=== PATIENT | male | born 1960 | race Caucasian/White ===

== ENCOUNTER → 2020-07-07 12:46 | Outpatient (BNV) | payer BC, SELFPAY | PROVIDERS: PCP Internal Medicine; Visit Provider Internal Medicine Medical Oncology | DX: Z86.711 Personal history of pulmonary embolism (principal); Z79.01 Long term (current) use of anticoagulants | CPT/HCPCS: 99213; 99214 ==

== ENCOUNTER 2020-08-04 06:30 | Outpatient (REF) | payer BC, SELFPAY ==
[2020-08-04 07:11] LABS: Basophils Absolute Auto 0.1 X10*3/uL (0.0-0.2); Basophils Percent Auto 0.7 % (0-2); Eosinophils Absolute Auto 0.4 X10*3/uL (0.0-0.4); Eosinophils Percent Auto 4.6 % (0-4); Hematocrit 49.2 % (42-52); Hemoglobin 16.4 g/dl (14.0-18.0); Imm Gran Abs Auto 0.02 X10*3/uL (0.00-0.03); Imm Gran Pct Auto 0.2 % (0.0-0.4); Lymphocytes Absolute Auto 2.4 X10*3/uL (1.2-4.9); Lymphocytes Percent Auto 30.2 % (20-40); Mean Corpuscular HGB Conc 33.3 g/dl (31.0-36.0); Mean Corpuscular Hemoglobin 31.1 pg (27.0-33.0); Mean Corpuscular Volume 93.4 fL (80-98); Mean Platelet Volume 9.3 fL (9.4-12.4); Monocytes Absolute Auto 0.7 X10*3/uL (0.1-1.2); Monocytes Percent Auto 9.2 % (2-11); Neutrophils Absolute Auto 4.5 X10*3/uL (2.0-8.3); Neutrophils Percent Auto 55.1 % (45-73); Platelet Count 238 X10*3/uL (160-400); Red Blood Count 5.27 X10*6/uL (4.60-5.80); Red Cell Distribution Width 12.7 % (11.0-16.0); White Blood Count 8.1 X10*3/uL (4.8-10.8)
[2020-08-04 07:13] LABS: MANUAL DIFF FLAG NO
[2020-08-04 07:34] LABS: Alanine Aminotransferase 27 U/L (0-40); Albumin Level 4.3 g/dL (3.5-5.0); Alkaline Phosphatase 78 U/L (39-117); Anion Gap 14 (12-20); Aspartate Amino Transferase 21 U/L (5-37); Bilirubin Total 0.4 mg/dL (0.0-1.0); Blood Urea Nitrogen 22 mg/dL (9-16); Calcium 9.4 mg/dL (8.4-10.2); Carbon Dioxide 26 mmol/L (22-29); Chloride 105 mmol/L (96-108); Cholesterol 183 mg/dL; Estimated Glomerular Filt Rate > 60; Glucose Fasting 123 mg/dL (60-99); HDL Cholesterol 43 mg/dL; LDL Cholesterol Calculated 114 mg/dl; Potassium 4.3 mmol/l (3.3-5.1); Sodium 141 mmol/L (135-145); Total Protein 7.4 g/dL (6.5-8.0); Triglycerides 133 mg/dL
[2020-08-04 07:54] LABS: PSA,Total (Free>4and<10) 1.11 ng/mL (0.00-4.00); T4 Thyroxine 5.3 ug/dL (4.5-12.0); Thyroid Stimulating Hormone 2.98 uIU/mL (0.32-4.0)
[2020-08-04 08:13] LABS: Folate 9.4 ng/mL (> or = 4.0); Vitamin B12 286 pg/mL (200-900)
== END 2020-08-04 06:31 | disposition home or self-care (01) ==
LOC: HO.LAB 06:30
PROVIDERS: Visit Provider Internal Medicine
DX: Z00.00 Encounter for general adult medical examination without abnormal findings (principal); I26.99 Other pulmonary embolism without acute cor pulmonale; I82.409 Acute embolism and thrombosis of unspecified deep veins of unspecified lower extremity; R76.0 Raised antibody titer; D68.8 Other specified coagulation defects; E78.00 Pure hypercholesterolemia, unspecified; I10 Essential (primary) hypertension; R73.01 Impaired fasting glucose; K22.10 Ulcer of esophagus without bleeding; M70.50 Other bursitis of knee, unspecified knee; Z72.0 Tobacco use
CPT/HCPCS: 36415; 80053; 80061; 82607; 82746; 84153; 84436; 84443; 85025

== ENCOUNTER 2021-02-02 09:42 | Outpatient (REF) | payer BC, SELFPAY ==
--- NOTE | ~2021-02-02 | XR_ITS ---
EXAMINATION: XR CHEST CLINICAL INFORMATION: Shortness of breath COMPARISON: Previous chest x-ray most recent January 2020 TECHNIQUE: 2 views of the chest were obtained. FINDINGS: The cardiac and mediastinal contours are normal. There are bilateral symmetric appearing 1 cm nodular densities at the lung bases probably representing nipple shadows. The lungs are otherwise clear. There is no pleural effusion or pneumothorax. There are degenerative changes of the spine. XR/XR chest 2V IMPRESSION: No evidence for acute disease in the chest.
--- NOTE | 2021-02-02 09:51 | ECG_ITS ---
Test Reason : R06.02 SOB Blood Pressure : / mmHG Vent. Rate : 072 BPM Atrial Rate : 072 BPM P-R Int : 116 ms QRS Dur : 084 ms QT Int : 384 ms P-R-T Axes : 067 046 071 degrees QTc Int : 420 ms Normal sinus rhythm Possible Left atrial enlargement Borderline ECG When compared with ECG of 08-FEB-2020 11:25, No significant change was found Referred By: Ed Yuen Electronically Signed By:Gio Schilling
== END 2021-02-02 09:43 | disposition home or self-care (01) ==
LOC: HO.XRAY 09:42
PROVIDERS: PCP Internal Medicine; Visit Provider Internal Medicine
DX: R06.02 Shortness of breath (principal)
CPT/HCPCS: 71046; 93005

== ENCOUNTER 2021-07-07 11:33 | Outpatient (REF) | payer BC, SELFPAY | END 2021-07-07 11:34 | disposition home or self-care (01) | LOC: HO.LAB 11:33 | PROVIDERS: Visit Provider Internal Medicine | DX: Z13.89 Encounter for screening for other disorder (principal) ==

== ENCOUNTER 2021-07-27 06:39 | Outpatient (REF) | payer BC, SELFPAY ==
[2021-07-27 06:51] LABS: MANUAL DIFF FLAG NO
[2021-07-27 07:23] LABS: Basophils Absolute Auto 0.1 X10*3/uL (0.0-0.2); Basophils Percent Auto 0.7 % (0-2); Eosinophils Absolute Auto 0.4 X10*3/uL (0.0-0.4); Eosinophils Percent Auto 4.9 % (0-4); Hematocrit 47.5 % (42.0-52.0); Hemoglobin 15.6 g/dl (14.0-18.0); Imm Gran Abs Auto 0.03 X10*3/uL (0.00-0.03); Imm Gran Pct Auto 0.3 % (0.0-0.4); Lymphocytes Absolute Auto 2.9 X10*3/uL (1.2-4.9); Lymphocytes Percent Auto 31.7 % (20-40); Mean Corpuscular HGB Conc 32.8 g/dl (31.0-36.0); Mean Corpuscular Hemoglobin 30.6 pg (27.0-33.0); Mean Corpuscular Volume 93.1 fL (80.0-98.0); Mean Platelet Volume 9.3 fL (9.4-12.4); Monocytes Absolute Auto 0.8 X10*3/uL (0.1-1.2); Monocytes Percent Auto 8.8 % (2-11); Neutrophils Absolute Auto 4.8 x10*3/uL (2.0-8.3); Neutrophils Percent Auto 53.6 % (45-73); Platelet Count 262 X10*3/uL (160-400); Red Cell Distribution Width 12.9 % (11.0-16.0)
[2021-07-27 07:33] LABS: Estimated Average Glucose 123 mg/dL; Hemoglobin A1c % 5.9 %
[2021-07-27 08:04] LABS: Alanine Aminotransferase 29 U/L (0-40); Albumin Level 4.4 g/dL (3.5-5.0); Alkaline Phosphatase 80 U/L (39-117); Anion Gap 13 (12-20); Aspartate Amino Transferase 19 U/L (5-37); Bilirubin Total 0.6 mg/dL (0.0-1.0); Blood Urea Nitrogen 33 mg/dL (9-16); Calcium 9.9 mg/dL (8.4-10.2); Carbon Dioxide 28 mmol/L (22-29); Chloride 103 mmol/L (96-108); Cholesterol 210 mg/dL; Estimated Glomerular Filt Rate > 60; Glucose Random 121 mg/dL (60-115); HDL Cholesterol 41 mg/dL; LDL Cholesterol Calculated 108 mg/dl; Potassium 4.5 mmol/L (3.3-5.1); Sodium 139 mmol/L (135-145); Total Protein 7.8 g/dL (6.5-8.0); Triglycerides 306 mg/dL
[2021-07-27 08:14] LABS: Free T4 (Free Thyroxine) 0.89 ng/dL (0.71-1.85); Prostate Specific Antigen Scr 1.43 ng/mL (<0.05-4.0); Thyroid Stimulating Hormone 3.96 uIU/mL (0.32-4.0)
[2021-07-27 09:11] LABS: Folate 11.1 ng/mL (> or = 4.0); Vitamin B12 312 pg/mL (200-900)
== END 2021-07-27 06:40 | disposition home or self-care (01) ==
LOC: HO.LAB 06:39
PROVIDERS: PCP Internal Medicine; Visit Provider Internal Medicine
DX: R73.02 Impaired glucose tolerance (oral) (principal); E78.00 Pure hypercholesterolemia, unspecified; I10 Essential (primary) hypertension; Z12.5 Encounter for screening for malignant neoplasm of prostate
CPT/HCPCS: 36415; 80053; 80061; 82607; 82746; 83036; 84153; 84439; 84443; 85025

== ENCOUNTER 2022-02-01 10:29 | Outpatient (REF) | payer BC, SELFPAY ==
[2022-02-01 10:45] LABS: MANUAL DIFF FLAG NO
[2022-02-01 10:55] LABS: Basophils Absolute Auto 0.1 X10*3/uL (0.0-0.2); Basophils Percent Auto 0.6 % (0-2); Eosinophils Absolute Auto 0.3 X10*3/uL (0.0-0.4); Hemoglobin 16.3 g/dl (14.0-18.0); Imm Gran Abs Auto 0.03 X10*3/uL (0.00-0.03); Imm Gran Pct Auto 0.4 % (0.0-0.4); Lymphocytes Absolute Auto 2.4 X10*3/uL (1.2-4.9); Lymphocytes Percent Auto 30.3 % (20-40); Mean Corpuscular Volume 91.3 fL (80.0-98.0); Mean Platelet Volume 8.9 fL (9.4-12.4); Monocytes Absolute Auto 0.7 X10*3/uL (0.1-1.2); Monocytes Percent Auto 8.5 % (2-11); Neutrophils Absolute Auto 4.5 x10*3/uL (2.0-8.3); Neutrophils Percent Auto 56.2 % (45-73); Platelet Count 215 X10*3/uL (160-400); Red Blood Count 5.26 X10*6/uL (4.60-5.80)
[2022-02-01 11:04] LABS: Estimated Average Glucose 120 mg/dL; Hemoglobin A1c % 5.8 %
[2022-02-01 11:37] LABS: Alanine Aminotransferase 27 U/L (0-40); Albumin Level 4.7 g/dL (3.5-5.0); Alkaline Phosphatase 75 U/L (39-117); Anion Gap 12 (12-20); Aspartate Amino Transferase 25 U/L (5-37); Bilirubin Total 0.2 mg/dL (0.0-1.0); Blood Urea Nitrogen 22 mg/dL (9-16); Calcium 9.2 mg/dL (8.4-10.2); Carbon Dioxide 23 mmol/L (22-29); Chloride 105 mmol/L (96-108); Cholesterol 208 mg/dL; Estimated Glomerular Filt Rate > 60; Glucose Random 110 mg/dL (60-115); HDL Cholesterol 35 mg/dL; LDL Cholesterol Calculated 110 mg/dl; Potassium 4.1 mmol/L (3.3-5.1); Sodium 136 mmol/L (135-145); Total Protein 8.1 g/dL (6.5-8.0); Triglycerides 318 mg/dL
[2022-02-01 12:01] LABS: Thyroid Stimulating Hormone 1.49 uIU/mL (0.32-4.0)
== END 2022-02-01 10:30 | disposition home or self-care (01) ==
LOC: HO.LAB 10:29
PROVIDERS: PCP Internal Medicine; Visit Provider Internal Medicine
DX: R73.02 Impaired glucose tolerance (oral) (principal); I10 Essential (primary) hypertension; E78.00 Pure hypercholesterolemia, unspecified
CPT/HCPCS: 36415; 80053; 80061; 83036; 84443; 85025

== ENCOUNTER 2022-03-12 13:41 | Outpatient (REF) | payer BC, SELFPAY ==
--- NOTE | ~2022-03-12 | CT_ITS ---
EXAMINATION: CT CHEST SCREENING CLINICAL INFORMATION: Nicotine dependence. COMPARISON: CTA chest 10/30/2018 TECHNIQUE: Multidetector volumetric CT imaging of the chest is performed without contrast using low dose technique. Additional 2D coronal and sagittal reformatted images and axial 3D maximum intensity projection (MIP) images are generated on the CT workstation. This CT examination was performed using dose optimization techniques as appropriate, variously including the following: *Automated exposure control *Adjustment of mA and/or kV according to patient size (this includes techniques or standardized protocols for targeted exams where dose is matched to indication/reason for exam; i.e. extremities or head) *Use of iterative reconstruction technique DLP: 51 mGy-cm FINDINGS: LUNGS: There is bilateral apical parenchymal scarring and apical pleural thickening. There is a 2 mm calcified subpleural nodule left upper lobe 135/6, 2 mm noncalcified nodule right upper lobe, axial image 141/6 and mild focal thickening left major fissure axial image 253/6. There is a 3 mm nodule right lower lobe axial image 306/6, and 6 mm nodule along the left major fissure axial image 312/16. These nodules are stable. No new nodules. MEDIASTINUM: The thyroid lobes are stable and symmetrical. The central trachea and the bronchi are widely patent. The heart size and the great vessels are normal caliber. There is no pericardial effusion. The central trachea and the bronchi are widely patent. No abnormal-sized mediastinal or hilar lymph nodes seen. PLEURA: There is bilateral apical pleural thickening. No effusion or calcified plaque seen. AXILLA: Small shotty lymph nodes seen in the mediastinum. The chest wall appears unremarkable. UPPER ABDOMEN: Visualized liver, spleen, pancreas and bilateral adrenal glands unremarkable. OSSEOUS STRUCTURES: No lytic or sclerotic process seen. There is moderate spondylosis mid dorsal spine CT/CT lung screening IMPRESSION: Calcified and noncalcified nodules. Intrafissural nodules are likely lymph nodes and they are stable compared to previous exam 10/30/2018 ASSESSMENT: Lung-RADS category 2: Benign RECOMMENDATION: Low-dose annual CT chest.
== END 2022-03-12 13:42 | disposition home or self-care (01) ==
LOC: HO.CT 13:41
PROVIDERS: PCP Internal Medicine; Visit Provider Physician Assistant Medical
DX: Z12.2 Encounter for screening for malignant neoplasm of respiratory organs (principal); F17.210 Nicotine dependence, cigarettes, uncomplicated
CPT/HCPCS: 71271; G0296

== ENCOUNTER 2022-11-09 11:38 | Outpatient (REF) | payer BC, SELFPAY ==
--- NOTE | ~2022-11-09 | XR_ITS ---
EXAMINATION: XR HAND/WRIST, BILATERAL CLINICAL INFORMATION: Bilateral wrist pain COMPARISON: None. TECHNIQUE: 4 views of each hand/wrist. FINDINGS: Right hand/wrist: Moderate osteoarthritis with narrowing of the triscaphoid articulation. Moderate degenerative changes also at the 3rd PIP joint and the 2nd/3rd DIP joints. There are mild degenerative changes elsewhere throughout the MCP and IP joints. No active erosion or acute osseous abnormality. Left hand/wrist: Severe osteoarthritis of the triscaphoid articulation. Moderate osteoarthritis of the 2nd and 3rd DIP joints. Mild degenerative changes throughout the remainder of the MCP and IP joints. No active erosion or acute osseous abnormality. XR/XR hand wrist LT IMPRESSION: Degenerative changes of both hands and wrists as described, most severe at the triscaphoid articulation, 2nd and 3rd DIP joints. No evidence of an active inflammatory arthropathy.
--- NOTE | ~2022-11-09 | XR_ITS ---
EXAMINATION: XR HAND/WRIST, BILATERAL CLINICAL INFORMATION: Bilateral wrist pain COMPARISON: None. TECHNIQUE: 4 views of each hand/wrist. FINDINGS: Right hand/wrist: Moderate osteoarthritis with narrowing of the triscaphoid articulation. Moderate degenerative changes also at the 3rd PIP joint and the 2nd/3rd DIP joints. There are mild degenerative changes elsewhere throughout the MCP and IP joints. No active erosion or acute osseous abnormality. Left hand/wrist: Severe osteoarthritis of the triscaphoid articulation. Moderate osteoarthritis of the 2nd and 3rd DIP joints. Mild degenerative changes throughout the remainder of the MCP and IP joints. No active erosion or acute osseous abnormality. XR/XR hand wrist RT IMPRESSION: Degenerative changes of both hands and wrists as described, most severe at the triscaphoid articulation, 2nd and 3rd DIP joints. No evidence of an active inflammatory arthropathy.
== END 2022-11-09 11:39 | disposition home or self-care (01) ==
LOC: HO.XRAY 11:38
PROVIDERS: PCP Internal Medicine; Visit Provider Internal Medicine
DX: M25.532 Pain in left wrist (principal); M25.531 Pain in right wrist; M79.641 Pain in right hand; M79.642 Pain in left hand
CPT/HCPCS: 73110; 73130

== ENCOUNTER → 2022-11-25 08:20 | Outpatient (REF) | payer BC, SELFPAY ==
--- NOTE | 2022-11-25 08:22 | CA_ITS ---
Acquisition Time: 2022-11-25 08:33:13 Total Exercise Time: 00:08:59 Test Indications: CP Medications: SEE H Protocol: STAN Max HR: 162 BPM 102% of Pred: 158 BPM Max BP: 164/078 mmHG Max Work Load: 10.1 METS Exercise stress test 8 min 59 sec of Stan protocol achieving 101% MPHR, with moderate SOB, no chest discomfort, isolated PVC, with normotensive response to exercise, with EKG chnages meeting criteria for ischemia. Up to 1mm ST depression inferiorly and V4-V5 which corrects quickly in recovery then with slight downsloping STs in those leads in later recovery. Test reviewed with Dr Ron. Message sent to PCP with report and recommendation for stress echocardiogram for further evaluation. Referred By: Ed Yuen Overread By: CHAIM LOUISE
== END ==
LOC: HO.CARD 08:20
PROVIDERS: PCP Internal Medicine; Visit Provider Internal Medicine
DX: R06.02 Shortness of breath (principal)
CPT/HCPCS: 93017

== ENCOUNTER 2023-02-07 06:33 | Outpatient (REF) | payer BC, SELFPAY ==
[2023-02-07 06:47] LABS: MANUAL DIFF FLAG NO
[2023-02-07 07:17] LABS: Basophils Absolute Auto 0.1 X10*3/uL (0.0-0.2); Eosinophils Absolute Auto 0.3 X10*3/uL (0.0-0.4); Eosinophils Percent Auto 4.2 % (0-4); Hematocrit 48.2 % (42.0-52.0); Hemoglobin 16.5 g/dl (14.0-18.0); Imm Gran Abs Auto 0.03 X10*3/uL (0.00-0.03); Imm Gran Pct Auto 0.4 % (0.0-0.4); Lymphocytes Absolute Auto 2.8 X10*3/uL (1.2-4.9); Lymphocytes Percent Auto 34.2 % (20-40); Mean Corpuscular HGB Conc 34.2 g/dl (31.0-36.0); Mean Corpuscular Hemoglobin 31.7 pg (27.0-33.0); Mean Corpuscular Volume 92.7 fL (80.0-98.0); Mean Platelet Volume 9.1 fL (9.4-12.4); Monocytes Absolute Auto 0.8 X10*3/uL (0.1-1.2); Neutrophils Absolute Auto 4.1 x10*3/uL (2.0-8.3); Neutrophils Percent Auto 50.2 % (45-73); Platelet Count 216 X10*3/uL (160-400); Red Cell Distribution Width 12.7 % (11.0-16.0); White Blood Count 8.1 X10*3/uL (4.8-10.8)
[2023-02-07 07:25] LABS: Estimated Average Glucose 114 mg/dL; Hemoglobin A1c % 5.6 %
[2023-02-07 07:51] LABS: Alanine Aminotransferase 23 U/L (0-40); Albumin Level 4.3 g/dL (3.5-5.0); Alkaline Phosphatase 73 U/L (39-117); Anion Gap 13 (12-20); Aspartate Amino Transferase 23 U/L (5-37); Bilirubin Total 0.3 mg/dL (0.0-1.0); Blood Urea Nitrogen 13 mg/dL (9-16); Calcium 9.5 mg/dL (8.4-10.2); Carbon Dioxide 26 mmol/L (22-29); Chloride 103 mmol/L (96-108); Cholesterol 186 mg/dL; Estimated Glomerular Filt Rate > 60; Glucose Random 98 mg/dL (60-115); HDL Cholesterol 38 mg/dL; LDL Cholesterol Calculated 102 mg/dl; Potassium 4.3 mmol/L (3.3-5.1); Sodium 138 mmol/L (135-145); Total Protein 7.7 g/dL (6.5-8.0); Triglycerides 231 mg/dL
[2023-02-07 08:05] LABS: Free T4 (Free Thyroxine) 0.79 ng/dL (0.71-1.85); Thyroid Stimulating Hormone 3.65 uIU/mL (0.32-4.0); Vitamin D 25-OH Total 86.3 ng/mL (>30)
[2023-02-07 08:20] LABS: Prostate Specific Antigen Scr 1.27 ng/mL (<0.05-4.0); Vitamin B12 340 pg/mL (200-900)
== END 2023-02-07 06:34 | disposition home or self-care (01) ==
LOC: HO.LAB 06:33
PROVIDERS: PCP Internal Medicine; Visit Provider Internal Medicine
DX: Z12.5 Encounter for screening for malignant neoplasm of prostate (principal); E78.00 Pure hypercholesterolemia, unspecified; R73.02 Impaired glucose tolerance (oral); E55.9 Vitamin D deficiency, unspecified
CPT/HCPCS: 36415; 80053; 80061; 82306; 82607; 82746; 83036; 84153; 84439; 84443; 85025

== ENCOUNTER 2023-02-10 08:56 | Outpatient (AMB) | payer BC, SELFPAY ==
--- NOTE | 2023-02-10 08:59 | A.OFFPC_ITS ---
Vital Signs 02/10/23 09:01 Height 5 ft 9 in Weight 176 lb BMI 26.0 BP 158/68 H Blood Pressure Location Lt brachial Position Sitting Pulse 80 Pulse Source Pulse Oximeter Pulse Oximetry (%) 98 Oxygen Delivery Method Room Air Intake Visit Reasons: Annual Exam Allergies No Known Allergies [No Known Allergies*] Allergy (Verified 02/10/23 09:01) Medication List - Last Reconciled 02/10/23 by Ed Yuen MD albuterol sulfate 90 mcg/actuation (ProAir HFA) 2 puffs inhalation Q6H PRN lisinopril 10 mg PO DAILY 90 days omeprazole 20 mg PO DAILY rivaroxaban (Xarelto) 10 mg PO DAILY simvastatin 10 mg PO BEDTIME timolol 0.25% 1 drp ophthalmic (eye) DAILY [Vitamin D (with calcium) 1 tab PO DAILY] Tobacco use date assessed: 11/09/22 Dental Screening Dental Screen Date: 02/10/23 Did you have a dental visit in the last 12 months?: No Did you have a dental problem in the last 6 months where you did not have access to dental care?: No Was dental information given to patient?: No HPI Annual Exam HPI Details 62-year-old male smoker(CT scan February 2022) with lupus anticoagulant positive on anticoagulation history of impaired glucose tolerance COPD hypercholesterolemia hypertension coming in for physical exam. Colonoscopy is up-to-date blood work was requested patient was last seen in October 2022. Patient had a problem with breathing and stress test was requested with this stress echocardiogram requested. Patient also follows up with hematology oncology due to right leg DVT and pulmonary embolism patient is on anticoagulation daily maintenance dose of 10 mg once a day. Patient also had some x-rays of the hand showing degenerative changes most severe try scaphoid articulation 2nd and 3rd D IP, near passing out 1.5 months ago ? syncope. sob 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 Tubular adenoma of colon (~2017) Vitamin D deficiency Surgical History History of angioplasty of vein History of colonoscopy History of esophagogastroduodenoscopy (EGD) S/P insertion of IVC (inferior vena caval) filter Family History Father Automobile accident Mother Breast cancer Sister Cancer Social History (Updated 02/10/23 @ 09:18 by Ed Yuen MD) Housing: Apartment Alcohol intake: current Patient Tobacco Use Status: Current everyday Tobacco user Tobacco use type: Cigarette Years Smoked: (onset 18yo, 1/2-3/4 ppd x 43yrs, 25+PYH) e-Cigarette/Vaping Use: Never Used Second Hand Smoke Exposure: Yes service: No Current occupational status: employed Cognitive needs: No Hearing needs: No Vision needs: Yes Questionnaire PHQ-9 Over the last 2 weeks, how often have you been bothered by any of the following problems? 1. Little interest or pleasure in doing things: not at all 2. Feeling down, depressed, or hopeless: not at all 3. Trouble falling or staying asleep, or sleeping too much: not at all 4. Feeling tired or having little energy: not at all 5. Poor appetite or overeating: not at all 6. Feeling bad about yourself - or that you are a failure or have let yourself or your family down: not at all 7. Trouble concentrating on things, such as reading the newspaper or watching television: not at all 8. Moving or speaking so slowly that other people could have noticed. Or the o pposite - being so fidgety or restless that you have been moving around a lot more than usual: not at all 9. Thoughts that you would be better off or of hurting yourself in some way: not at all Total score: 0 Depression Screening Interpretation: Negative Source: Developed by Drs. Sadiq Simmons, Jeanette Park, Shawn Webb and colleagues, with an educational julissa from [employer]. Thrive Questionnaire Date Thrive assessed: 11/09/22 AUDIT C Alcohol Use Questionnaire (AUDIT-C) 1. How often do you have a drink containing alcohol?: 2-3 times a week 2. How many drinks containing alcohol do you have on a typical day when you are drinking?: 3 or 4 3. How often do you have six or more drinks on one occasion?: Less than monthly Total Score: 5 JARVIS-7 AMB Questionnaire JARVIS-7 Date JARVIS - 7 assessed: 11/09/22 Source: Developed by Drs. Sadiq Simmons, Jeanette Park, Shawn Webb and colleagues, with an educational julissa from [employer]. Review of Systems Const Denies poor appetite and Denies weakness Eyes Denies no additional complaints ENT Reports Normal hearing present, Denies dizziness, Denies nasal congestion, Denies tinnitus and Denies sore throat Card Denies chest pain, Denies syncope, Denies rapid heart rate and Denies dyspnea Resp Denies cough and Denies dyspnea GI Denies change in stool character, Reports constipation, Denies diarrhea, Denies nausea and Denies vomiting Denies dysuria and Denies urinary frequency Neuro Reports Normal hearing present, Denies confusion, Denies dizziness, Denies syncope and Denies weakness Psych Denies confusion Physical exam (Primary Care) Vital Signs: Last Vital Signs Pulse 80 02/10/23 09:01 BP 158/68 H 02/10/23 09:01 Pulse Ox 98 02/10/23 09:01 Oxygen Delivery Method Room Air 02/10/23 09:01 Care Plan Goal for BP management: guaiac negative, prostate N, BMI result Body Mass Index 26.0 Tobacco/Smoking Status: Tobacco use Status Tobacco use date assessed 11/09/22 02/10/23 09:05 Patient Tobacco Use Status Current everyday Tobacco 02/10/23 09:05 Tobacco use type Cigarette 02/10/23 09:05 e-Cigarette/Vaping Use Never Used 02/10/23 09:05 PHQ-9: PHQ-9 Score PHQ-9: Total score 0 02/10/23 09:05 Depression Screening Interpretation: Negative Thrive Assessment: Date of Thrive Assessment Date Thrive assessed 11/09/22 02/10/23 09:05 Const General: No confusion Orientation/consciousness: No confusion HENMT Head: Yes normocephalic Ears: external ears normal and TM's normal bilaterally Face and sinus: Yes normal facial exam Mouth: moist mucous membranes Throat: Yes tonsils normal Eyes Conjunctivae: conjunctivae normal Pupils: Equal, round and reactive pupils present and Pupil accommodation reflex normal Direct Ophthalmoscopy: normal light reflex Neck Neck: No lymphadenopathy Thyroid: Thyroid normal Chest Chest palpation & inspection: normal inspection of the chest Resp Effort & Inspection: normal respiratory effort and no audible wheezes Auscultation: clear to auscultation bilaterally, no crackles, no wheezes and lung sounds not diminished Cardio Rate: regular rate Rhythm: regular rhythm Peripheral pulses: radial pulses present and dorsalis pedis present GI Palpation (GI): no masses Auscultation: normal bowel sounds and normoactive bowel sounds Skin General skin exam: no rashes or lesions noted Rashes: no rashes Neuro General: No confusion Cranial nerves: Yes Equal, round and reactive pupils present and Yes Normal hearing present Cognition (Neuro): normal cognition Gait exam (Neuro): Normal gait present Motor exam (neuro): 5/5 motor strength present throughout Deep tendon reflexes (DTR's): Right brachioradialis reflex intensity grade: 2+, Left brachioradialis reflex intensity grade: 2+, Right patellar reflex intensity grade: 2+ and Left patellar reflex intensity grade: 2+ Extrem General: No edema Assessment and Plan Assessment & Plan (1) Annual physical exam: Code(s): Z00.00 - Encounter for general adult medical examination without abnormal findings (2) Impaired glucose tolerance: Code(s): R73.02 - Impaired glucose tolerance (oral) Plan: Decrease the amount of carbohydrate intake, pasta, bread, rice and potatoes are all sugar and that is aside from all the sweet stuff, remember that fruits are good but they are Sweet also. (3) Hypertension: Code(s): I10 - Essential (primary) hypertension Qualifiers: Hypertension type: essential hypertension Qualified Code(s): I10 - Essential (primary) hypertension Plan: Continue with blood pressure medication. Decrease salt intake and exercise patient is presently taking lisinopril 10 mg once a day. BP at home has been good . advised monitor BP at home (4) Hypercholesterolemia: Code(s): E78.00 - Pure hypercholesterolemia, unspecified Plan: Avoid fried foods, chicken skin, eggs, butter margarine, pastries and meat. Be it pork or beef they have a lot of cholesterol LDL goal of less than 130 and triglyceride of less than 150 patient is on simvastatin 10 mg at bedtime (5) Lupus anticoagulant positive: Code(s): R76.0 - Raised antibody titer Plan: Continue with anticoagulation on Xarelto 10 mg maintenance patient is being followed up by hematology oncology (6) COPD (chronic obstructive pulmonary disease): Comment: 2010 PFT Code(s): J44.9 - Chronic obstructive pulmonary disease, unspecified Plan: Continue with the inhalers as needed, stop smoking! (7) Personal history of nicotine dependence: Comment: (current smoker - onset 18yo, 1/2-3/4 ppd x 43yrs, 25+PYH) CT scan done February 2022 Code(s): Z87.891 - Personal history of nicotine dependence Plan: CT scan up-to-date February 2022 (8) Osteoarthritis of hands, bilateral: Code(s): M19.041 - Primary osteoarthritis, right hand; M19.042 - Primary osteoarthritis, left hand Plan: Keep active patient was prescribed Voltaren gel (9) SOB (shortness of breath) on exertion: Code(s): R06.02 - Shortness of breath Plan: Patient has been advised to get a stress echocardiogram which is pending Medications: New diclofenac sodium 1% (Voltaren Arthritis Pain) apply to single knee, ankle, foot; for foot includes sole/toes/top of foot, hands 4 grams topical QID 100 grams 3RF M19.041 - Primary osteoarthritis, right hand, M19.042 - Primary osteoarthritis, left hand Discontinued rivaroxaban 10 mg PO DAILY 90 tabs 3RF Coding Level of Care Code Est Pt Prev Care 40-64y(24676) Diagnoses Annual physical exam Z00.00 Impaired glucose tolerance R73.02 Hypertension I10 Hypertension type: essential hypertension Hypercholesterolemia E78.00 Lupus anticoagulant positive R76.0 COPD (chronic obstructive pulmonary disease) J44.9 Personal history of nicotine dependence Z87.891 Osteoarthritis of hands, bilateral M19.041; M19.042 SOB (shortness of breath) on exertion R06.02
[2023-02-10 09:01] VITALS: BP 158/68; PULSE 80; O2SAT 98; BMI 26.0
== END 2023-02-10 09:40 | disposition home or self-care (01) ==
PROVIDERS: PCP Internal Medicine; Visit Provider Internal Medicine
DX: Z00.00 Encounter for general adult medical examination without abnormal findings (principal); I10 Essential (primary) hypertension; J44.9 Chronic obstructive pulmonary disease, unspecified; Z87.891 Personal history of nicotine dependence; R73.02 Impaired glucose tolerance (oral); E78.00 Pure hypercholesterolemia, unspecified; R76.0 Raised antibody titer; M19.041 Primary osteoarthritis, right hand; M19.042 Primary osteoarthritis, left hand; R06.02 Shortness of breath
CPT/HCPCS: 99396

== ENCOUNTER 2023-03-27 13:16 | Emergency (ER) | payer BC, SELFPAY ==
[2023-03-27 13:53] VITALS: BP 144/89; PULSE 93; RESP 18; TEMP 36.4; O2SAT 98; BMI 25.5
--- NOTE | 2023-03-27 13:53 | ED.DENTAL ---
HPI - Dental/Oral General Stated complaint: swollen in gums Time Seen by Provider: 03/27/23 13:53 Source: patient Mode of arrival: ambulatory Limitations: no limitations History of Present Illness HPI Narrative: 62 yo male with past medical history of HTN, HLD, COPD, h/o DVTs on xarelto here with right upper dental pain since . No fevers, chills, difficulty breathing or swallowing. Does not have a dentist +smoking history Related Data Home Medications Medication Instructions Recorded Confirmed Vitamin D (with calcium) 1 tab PO DAILY 07/07/20 02/10/23 omeprazole 20 mg capsule,delayed 20 mg PO DAILY 07/07/20 02/10/23 release timolol 0.25 % eye drops 1 drp ophthalmic (eye) DAILY 07/07/20 02/10/23 Previous Rx's Medication Instructions Recorded albuterol sulfate 90 mcg/actuation 2 puff inhalation Q6H PRN 02/03/22 aerosol inhaler (ProAir HFA) shortness of breath or wheezing #8.5 grams lisinopril 10 mg tablet 10 mg PO DAILY 90 days #90 tabs 04/29/22 rivaroxaban 10 mg tablet (Xarelto) 10 mg PO DAILY #90 tabs 01/17/23 diclofenac sodium 1 % topical gel 4 g topical QID #100 grams 02/21/23 (Voltaren Arthritis Pain) simvastatin 10 mg tablet 10 mg PO BEDTIME #90 tabs 03/21/23 Allergies Allergy/AdvReac Type Severity Reaction Status Date / Time No Known Allergies Allergy Verified 02/10/23 09:01 [No Known Allergies*] Review of Systems Review of Systems: Yes all other systems are reviewed and are negative Constitutional: Constitutional: Reports no additional constitutional complaints, Denies body ache(s), Denies chills, Denies fever(s), Denies headache(s) and Denies weakness Eyes: Eyes: Reports no additional eye complaints and Denies change in vision ENT: Reports system reviewed and no additional complaints, except as documented, Reports dental pain, Denies dizziness, Denies headache(s), Denies nasal congestion, Denies nasal discharge and Denies neck pain Cardiovascular: Cardiovascular: Reports no additional cardiovascular complaints, Denies chest pain, Denies leg edema and Denies dyspnea Respiratory: Respiratory: Reports no additional respiratory complaints, Denies cough and Denies dyspnea Gastrointestinal: Gastrointestinal: Reports no additional gastrointestinal complaints, Denies abdominal pain, Denies diarrhea, Denies nausea and Denies vomiting Genitourinary: Genitourinary: Denies urinary incontinence Musculoskeletal: Musculoskeletal: Reports no additional musculoskeletal complaints, Denies back pain, Denies arthralgias, Denies joint swelling, Denies neck pain, Denies numbness and Denies tingling Integumentary/Breasts: Skin/Breast: Reports system reviewed and no additional complaints, except as docu and Denies rash Neurologic: Reports system reviewed and no additional complaints, except as documented, Denies dizziness, Denies headache(s), Denies numbness, Denies tingling and Denies weakness PMFSH Past Medical History Attestation statement: The following information was validated with the patient. Source: old records reviewed and nursing notes reviewed Medical History Annual physical exam Erosive esophagitis History of deep vein thrombosis (DVT) of lower extremity (~07/2017) History of pulmonary embolism (~07/2017) Hypercholesterolemia Hypertension Lupus anticoagulant positive Peripheral vascular disease Personal history of nicotine dependence Prothrombin [id number] mutation Tubular adenoma of colon (~2017) Vitamin D deficiency Surgical History History of angioplasty of vein History of colonoscopy History of esophagogastroduodenoscopy (EGD) S/P insertion of IVC (inferior vena caval) filter Family History Family History Father Automobile accident Mother Breast cancer Sister Cancer Social History Social History Housing: Apartment Alcohol intake: current Patient Tobacco Use Status: Current everyday Tobacco user Tobacco use type: Cigarette Years Smoked: (onset 18yo, 1/2-3/4 ppd x 43yrs, 25+PYH) e-Cigarette/Vaping Use: Never Used Second Hand Smoke Exposure: Yes service: No Current occupational status: employed Cognitive needs: No Hearing needs: No Vision needs: Yes Medical Decision Making Medical Decision Making MDM Narrative: 62 yo male with past medical history of HTN, HLD, COPD, h/o DVTs on xarelto here with right upper dental pain since . No fevers, chills, difficulty breathing or swallowing. Does not have a dentist +smoking history Discharge Plan Discharge Prescriptions: No Action lisinopril 10 mg tablet 10 mg PO DAILY 90 Days Qty: 90 2RF diclofenac sodium [Voltaren Arthritis Pain] 1 % gel 4 g topical QID Qty: 100 3RF Rx Instructions: apply to single knee, ankle, foot; for foot includes sole/toes/top of foot, hands simvastatin 10 mg tablet 10 mg PO BEDTIME Qty: 90 2RF timolol 0.25 % Drops 1 drp ophthalmic (eye) DAILY omeprazole 20 mg Capsule,Delayed Release(Dr/Ec) 20 mg PO DAILY Vitamin D (with calcium) 1 tab PO DAILY Xarelto 10 mg Tablet 10 mg PO DAILY Qty: 90 3RF albuterol sulfate [ProAir HFA] 90 mcg/actuation HFA aerosol inhaler 2 puff inhalation Q6H PRN (Reason: shortness of breath or wheezing) Qty: 8.5 0RF
--- NOTE | 2023-03-27 13:57 | ED_ITS ---
HPI - Dental/Oral General Chief complaint: Dental/Oral Stated complaint: swollen in gums Time Seen by Provider: 03/27/23 13:53 Source: patient Mode of arrival: ambulatory Limitations: no limitations History of Present Illness HPI Narrative: Patient is a 62-year-old male with history of HTN, hypercholesterolemia, COPD, smoker presenting to the emergency department with right upper gingival pain and swelling for the past several days. Reports that he has a partial which has been unable to wear due to pain. Denies any fevers. Denies any drainage or discharge. States he does not currently have a dentist. Onset (ago): day(s) Duration: constant Severity: severe Relieving factors: nothing Exacerbating factors: chewing Associated symptoms: gum swelling Treatment prior to arrival: none Related Data Home Medications Medication Instructions Recorded Confirmed Vitamin D (with calcium) 1 tab PO DAILY 07/07/20 02/10/23 omeprazole 20 mg capsule,delayed 20 mg PO DAILY 07/07/20 02/10/23 release timolol 0.25 % eye drops 1 drp ophthalmic (eye) DAILY 07/07/20 02/10/23 Previous Rx's Medication Instructions Recorded albuterol sulfate 90 mcg/actuation 2 puff inhalation Q6H PRN 02/03/22 aerosol inhaler (ProAir HFA) shortness of breath or wheezing #8.5 grams lisinopril 10 mg tablet 10 mg PO DAILY 90 days #90 tabs 04/29/22 rivaroxaban 10 mg tablet (Xarelto) 10 mg PO DAILY #90 tabs 01/17/23 diclofenac sodium 1 % topical gel 4 g topical QID #100 grams 02/21/23 (Voltaren Arthritis Pain) simvastatin 10 mg tablet 10 mg PO BEDTIME #90 tabs 03/21/23 amoxicillin 875 mg-potassium 1 tab PO BID #14 tabs 03/27/23 clavulanate 125 mg tablet Allergies Allergy/AdvReac Type Severity Reaction Status Date / Time No Known Allergies Allergy Verified 03/27/23 13:56 [No Known Allergies*] Review of Systems Review of Systems: As per HPI Yes all other systems are reviewed and are negative Constitutional: Constitutional: Reports as per HPI PMF Past Medical History Medical History Annual physical exam Erosive esophagitis History of deep vein thrombosis (DVT) of lower extremity (~07/2017) History of pulmonary embolism (~07/2017) Hypercholesterolemia Hypertension Lupus anticoagulant positive Peripheral vascular disease Personal history of nicotine dependence 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 Tubular adenoma of colon (~2017) Vitamin D deficiency Surgical History History of angioplasty of vein History of colonoscopy History of esophagogastroduodenoscopy (EGD) S/P insertion of IVC (inferior vena caval) filter Family History Family History Father Automobile accident Mother Breast cancer Sister Cancer Social History Social History Housing: Apartment Alcohol intake: current Patient Tobacco Use Status: Current everyday Tobacco user Tobacco use type: Cigarette Years Smoked: (onset 18yo, 1/2-3/4 ppd x 43yrs, 25+PYH) e-Cigarette/Vaping Use: Never Used Second Hand Smoke Exposure: Yes Advance Directives: Yes Advance Directives Information Provided: Yes Advance Directives on File: No service: No Current occupational status: employed Cognitive needs: No Hearing needs: No Vision needs: Yes Physical Exam Vital Signs: Vital Signs: Last Vital Signs Temp 97.6 F 03/27/23 13:53 Pulse 93 03/27/23 13:53 Resp 18 03/27/23 13:53 BP 144/89 H 03/27/23 13:53 Pulse Ox 98 03/27/23 13:53 O2 Del Method Room Air 03/27/23 13:53 BMI result Body Mass Index 25.5 Vital signs have been reviewed and appear to be correct. Blood pressure el evated. Heart rate normal. Respiratory rate normal. Temperature normal. Oxygen saturation normal. Const: General: cooperative, healthy appearing and no acute distress Orientation/consciousness: oriented to person, oriented to place, oriented to time and patient oriented x3 Limitations: no limitations HEENT: Head: Yes normocephalic and Yes atraumatic Ears: external ears normal General nose exam: Normal external nose present Face and sinus: Yes face symmetric Mouth: oropharynx normal and moist mucous membranes Teeth and gingiva: gingiva abnormal edematous (erythema), multiple restorations and poor dentition Teeth image: 1. Erythema and swelling to gingiva in area of teeth # 1&2 which have previously been removed Throat: Yes uvula midline Eyes: Pupils: Equal, round and reactive pupils present Neck: Neck: Yes normal visual inspection and Yes supple Resp: Effort & Inspection: normal respiratory effort and able to speak in complete sentences Auscultation: clear to auscultation bilaterally Cardio: Rate: regular rate Rhythm: regular rhythm Heart sounds: S1 normal heart sound present and S2 normal heart sound present GI: Palpation (GI): Soft to palpation and nontender Auscultation: normoactive bowel sounds : General: Yes no CVA tenderness Back/Spine/Pelvis: Back: no CVA tenderness Skin: General skin exam: elasticity normal and turgor normal Neuro: General: oriented to person, oriented to place, oriented to time, patient oriented x3, moves all extremities, no focal motor deficits and CN's II- XI intact bilaterally Cranial nerves: Yes Equal, round and reactive pupils present Cognition (Neuro): normal cognition Extrem: General: Yes full ROM, Yes no pedal edema and Yes no calf tenderness Psych: Mental Status: mental status grossly normal Affect: normal affect Thought process: Normal thought process present Course Course Course Narrative: This is a rapid medical exam. Defer additional HPI, ROS, PE department pr ovider. 62 yo male with past medical history of HTN, HLD, COPD, h/o DVTs on xarelto here with right upper dental pain since . No fevers, chills, difficulty breathing or swallowing. Does not have a dentist +smoking history +dental abscess seen which may be conducive to I&D VSS Medical Decision Making Medical Decision Making MDM Narrative: Patient is a 62-year-old male with history of HTN, hypercholesterolemia, COPD, smoker presenting to the emergency department with right upper gingival pain and swelling for the past several days. On exam patient is awake, A+Ox3, VS WNL, afebrile, normal neurological exam without focal deficits, erythema mild edema noted to right upper posterior gingiva where teeth 1 & 2 have previously been removed. Given reported symptoms and physical exam findings, initial differential includes gingival infection, abscess, dental abscess. No evidence of abscess on physical exam. Will prescribe course of Augmentin. Discussed with patient that he should attempt smoking cessation. Patient provided with list of dental clinics to establish care. Return precautions discussed at bedside. Patient verbalized understanding of and agreement with plan. Differential Diagnosis Differential Diagnoses: The differential diagnosis associated with the presentation includes As per MDM. External Record Review External record reviewed: Inpatient record, Office record and Outpatient record Prescription Management I considered prescription management with: Antibiotic Discharge Plan Discharge Clinical Impression: Gingival disease Patient Disposition: Home, Self-Care Additional Instructions: You were evaluated in the emergency department today for pain and swelling to your gums. You are being prescribed an antibiotic, please complete the full course as prescribed. You are being provided with a list of dental clinics, please attempt to establish care as soon as possible. Return to the emergency department if you develop worsening pain, swelling, thick yellow drainage, throat pain or swelling, difficulty swallowing, fever 100.4? F or greater or any other concerning symptoms. Prescriptions: New amoxicillin-pot clavulanate 875-125 mg tablet 1 tab PO BID Qty: 14 0RF No Action lisinopril 10 mg tablet 10 mg PO DAILY 90 Days Qty: 90 2RF diclofenac sodium [Voltaren Arthritis Pain] 1 % gel 4 g topical QID Qty: 100 3RF Rx Instructions: apply to single knee, ankle, foot; for foot includes sole/toes/top of foot, hands simvastatin 10 mg tablet 10 mg PO BEDTIME Qty: 90 2RF timolol 0.25 % Drops 1 drp ophthalmic (eye) DAILY omeprazole 20 mg Capsule,Delayed Release(Dr/Ec) 20 mg PO DAILY Vitamin D (with calcium) 1 tab PO DAILY Xarelto 10 mg Tablet 10 mg PO DAILY Qty: 90 3RF albuterol sulfate [ProAir HFA] 90 mcg/actuation HFA aerosol inhaler 2 puff inhalation Q6H PRN (Reason: shortness of breath or wheezing) Qty: 8.5 0RF
== END 2023-03-27 16:07 | disposition home or self-care (01) ==
PROVIDERS: Emergency Provider Emergency Medicine; PCP Internal Medicine
DX: K06.9 Disorder of gingiva and edentulous alveolar ridge, unspecified (principal); F17.200 Nicotine dependence, unspecified, uncomplicated; Z71.6 Tobacco abuse counseling; Z79.899 Other long term (current) drug therapy
CPT/HCPCS: 99283; 99284

== ENCOUNTER → 2023-05-17 10:49 | Outpatient (REF) | payer BC, SELFPAY ==
--- NOTE | 2023-05-17 10:52 | CA_ITS ---
Acquisition Time: 2023-05-17 10:50:32 Total Exercise Time: 00:08:27 Test Indications: SNCOPE Medications: SEE H Protocol: STAN Max HR: 155 BPM 98% of Pred: 158 BPM Max BP: 190/068 mmHG Max Work Load: 10.1 METS Exercise stress test exercise 8 min 27 sec of Stan protocol achieivng 96% MPHR, without anginal symptoms, without arrhythmias, with normotensive response to exrecise, with downslopping v4-v6. Echo images obtained by PlastiPure at rest and immediately post peak exercise, Definity contrast used. Test reviewed with with Dr. Ron Referred By: Ed Yuen Overread By: Kelin Roger
== END ==
LOC: HO.CARD 10:49
PROVIDERS: PCP Internal Medicine; Visit Provider Internal Medicine
DX: R06.02 Shortness of breath (principal)
CPT/HCPCS: 93350; Q9957

== ENCOUNTER → 2023-05-17 10:52 | Outpatient (BNV) | payer BC, SELFPAY | PROVIDERS: PCP Internal Medicine; Visit Provider Nurse Practitioner | DX: R06.02 Shortness of breath (principal); R55 Syncope and collapse | CPT/HCPCS: 93016; 93018; 93350; 93352 ==

== ENCOUNTER 2023-05-20 14:19 | Outpatient (AMB) | payer BC, SELFPAY ==
[2023-05-20 14:22] VITALS: BP 142/68; PULSE 95; O2SAT 96; BMI 25.4
--- NOTE | 2023-05-20 14:22 | A.OFFPC_ITS ---
Vital Signs 05/20/23 14:22 Height 5 ft 9 in Weight 172 lb BMI 25.4 BP 142/68 H Blood Pressure Location Lt brachial Position Sitting Pulse 95 Pulse Source Pulse Oximeter Pulse Oximetry (%) 96 Oxygen Delivery Method Room Air Intake Visit Reasons: 3 month f/u Allergies No Known Allergies [No Known Allergies*] Allergy (Verified 05/20/23 14:23) Tobacco use date assessed: 11/09/22 Dental Screening Dental Screen Date: 05/20/23 Did you have a dental visit in the last 12 months?: No Did you have a dental problem in the last 6 months where you did not have access to dental care?: No Was dental information given to patient?: Patient has dentist HPI 3 month f/u HPI Details 62-year-old male with impaired glucose t olerance hypertension hypercholesterolemia lupus anticoagulant positive on anticoagulant COPD coming in for follow-up. Last seen in January for physical exam. Patient is up-to-date with colonoscopy. Review of the notes has been following up with hematology oncology for the history of pulmonary embolism and right leg DVT on anticoagulation Xarelto 10 mg once a day for prophylaxis. Patient had problems with breathing and stress test was done this resulted in stress echo negative for ischemia. BP good at home [facility] Medical History Tubular adenoma of colon (~2017) Personal history of nicotine dependence History of deep vein thrombosis (DVT) of lower extremity (~07/2017) Annual physical exam Peripheral vascular disease Hypertension Erosive esophagitis Hypercholesterolemia Vitamin D deficiency Prothrombin [id number] mutation Lupus anticoagulant positive History of pulmonary embolism (~07/2017) Surgical History History of esophagogastroduodenoscopy (EGD) History of colonoscopy S/P insertion of IVC (inferior vena caval) filter History of angioplasty of vein Family History Father Automobile accident Mother Breast cancer Sister Cancer Social History Housing: Apartment Alcohol intake: current Alcohol intake frequency: a few times a week Patient Tobacco Use Status: Current everyday Tobacco user Tobacco use type: Cigarette Years Smoked: (onset 18yo, 1/2-3/4 ppd x 43yrs, 25+PYH) e-Cigarette/Vaping Use: Never Used Second Hand Smoke Exposure: Yes service: No Current occupational status: employed Cognitive needs: No Hearing needs: No Vision needs: Yes Questionnaire PHQ-9 Over the last 2 weeks, how often have you been bothered by any of the following problems? 1. Little interest or pleasure in doing things: not at all 2. Feeling down, depressed, or hopeless: not at all 3. Trouble falling or staying asleep, or sleeping too much: not at all 4. Feeling tired or having little energy: not at all 5. Poor appetite or overeating: not at all 6. Feeling bad about yourself - or that you are a failure or have let yourself or your family down: not at all 7. Trouble concentrating on things, such as reading the newspaper or watching television: not at all 8. Moving or speaking so slowly that other people could have noticed. Or the opposite - being so fidgety or restless that you have been moving around a lot more than usual: not at all 9. Thoughts that you would be better off or of hurting yourself in some way: not at all Total score: 0 Depression Screening Interpretation: Negative Depression Screening Done: Yes Source: Developed by Drs. Sadiq Simmons, Jeanette Park, Shawn Webb and colleagues, with an educational julissa from [employer]. Thrive Questionnaire Date Thrive assessed: 11/09/22 AUDIT C Alcohol Use Questionnaire (AUDIT-C) 1. How often do you have a drink containing alcohol?: 2-3 times a week 2. How many drinks containing alcohol do you have on a typical day when you are drinking?: 3 or 4 3. How often do you have six or more drinks on one occasion?: Less than monthly Total Score: 5 JARVIS-7 AMB Questionnaire JARVIS-7 Date JARVIS - 7 assessed: 11/09/22 Source: Developed by Drs. Sadiq Simmons, Jeanette Park, Shawn Webb and colleagues, with an educational julissa from [employer]. Physical exam (Primary Care) Vital Signs: Last Vital Signs Pulse 95 05/20/23 14:22 BP 142/68 H 05/20/23 14:22 Pulse Ox 96 05/20/23 14:22 Oxygen Delivery Method Room Air 05/20/23 14:22 BMI result Body Mass Index 25.4 Tobacco/Smoking Status: Tobacco use Status Tobacco use date assessed 11/09/22 05/20/23 14:23 Patient Tobacco Use Status Current everyday Tobacco 05/20/23 14:23 Tobacco use type Cigarette 05/20/23 14:23 e-Cigarette/Vaping Use Never Used 05/20/23 14:23 PHQ-9: PHQ-9 Score PHQ-9: Total score 0 05/20/23 14:33 Depression Screening Interpretation: Negative Thrive Assessment: Date of Thrive Assessment Date Thrive assessed 11/09/22 05/20/23 14:23 Const General: alert; No acute distress Eyes Conjunctivae: conjunctivae normal Resp Auscultation: clear to auscultation bilaterally Cardio Rate: regular rate Rhythm: regular rhythm GI Inspection: Yes normal to inspection Extrem General: Yes normal to inspection and No edema Office Procedures Flu Questionnaire Does the patient have a severe egg allergy?: No Does the patient have severe life threatening allergies?: No Does the patient have a fever or illness today?: No Has the patient ever had Guillain-[place] Syndrome?: No Has the patient ever had any past reaction to a flu shot?: No Immunizations flu vacc [id number] 6mos up(PF) 60 mcg(15 mcgx4)/0.5 mL IM syringe Performing Provider: Ed Yuen MD Performing Location: [facility] Administered by: BRENNAN Aragon on 05/20/23 14:33 Dose Route Admin Location Dispensed Lot Number Expiration Date NDC Cloth Spreader 0.5 mL IM Left Deltoid 0.5 mL [id number] 01/22/24 [id number] [employer] VIS Given Date VIS Provided VIS Publication Date 05/20/23 Single Vaccine 21 Eligibility Eligibility Date Funding Source Not [facility] Eligible 05/20/23 Private Assessment and Plan Assessment & Plan (1) COPD (chronic obstructive pulmonary disease): Comment: 2010 PFT Code(s): J44.9 - Chronic obstructive pulmonary disease, unspecified Plan: Continue with inhalers (2) Impaired glucose tolerance: Code(s): R73.02 - Impaired glucose tolerance (oral) Plan: Decrease the amount of carbohydrate intake, pasta, bread, rice and potatoes are all sugar and that is aside from all the sweet stuff, remember that fruits are good but they are Sweet also. (3) Hypertension: Code(s): I10 - Essential (primary) hypertension Qualifiers: Hypertension type: essential hypertension Qualified Code(s): I10 - Essential (primary) hypertension Plan: Continue with blood pressure medication. Decrease salt intake and exercise presently on lisinopril 10 mg once a day (4) Hypercholesterolemia: Code(s): E78.00 - Pure hypercholesterolemia, unspecified Plan: Avoid fried foods, chicken skin, eggs, butter margarine, pastries and meat. Be it pork or beef they have a lot of cholesterol LDL goal of less than 130 and triglyceride less than 150 patient on simvastatin 10 mg once a day (5) Lupus anticoagulant positive: Code(s): R76.0 - Raised antibody titer Plan: Continue with anticoagulation patient follows up with hematology oncology Orders: Orders Influenza [id number] Immunization Today Z23 - Encounter for immunization Coding Level of Care Code Est Pt Level 4 (97616) Diagnoses COPD (chronic obstructive pulmonary disease) J44.9 Impaired glucose tolerance R73.02 Essential hypertension I10 Hypertension type: essential hypertension Hypercholesterolemia E78.00 Lupus anticoagulant positive R76.0
== END 2023-05-20 14:56 | disposition home or self-care (01) ==
PROVIDERS: PCP Internal Medicine; Visit Provider Internal Medicine
DX: J44.9 Chronic obstructive pulmonary disease, unspecified (principal); R73.02 Impaired glucose tolerance (oral); I10 Essential (primary) hypertension; E78.00 Pure hypercholesterolemia, unspecified; R76.0 Raised antibody titer; Z23 Encounter for immunization
CPT/HCPCS: 90471; 90686; 99214

== ENCOUNTER 2024-02-01 09:08 | Day surgery (SDC) | payer BC, SELFPAY ==
--- NOTE | 2024-01-31 11:44 | HO.ANESPROP2 ---
Documented by User: Karen Armenta NP 01/31/24 11:45 HPI - Anesthesia Eval Consult details Narrative: 63yo M for Colonoscopy Hx DVT/PE - xarelto and IVC filter PMFSH Active Problems Active Problems: All Active Problems Osteoarthritis of hands, bilateral (Acute) Personal history of nicotine dependence (Acute) SOB (shortness of breath) on exertion (Acute) COPD (chronic obstructive pulmonary disease) (Acute) Impaired glucose tolerance (Acute) Hypertension (Acute) Hypercholesterolemia (Acute) Lupus anticoagulant positive (Acute) Past Medical History Medical History Tubular adenoma of colon (~2018) Personal history of nicotine dependence History of deep vein thrombosis (DVT) of lower extremity (~07/2017) Annual physical exam Peripheral vascular disease Hypertension Erosive esophagitis Hypercholesterolemia Vitamin D deficiency Prothrombin [id number] mutation Lupus anticoagulant positive History of pulmonary embolism (~07/2017) Family History Family History Father Automobile accident Mother Breast cancer Sister Cancer Surgical History Surgical History History of esophagogastroduodenoscopy (EGD) History of colonoscopy S/P insertion of IVC (inferior vena caval) filter History of angioplasty of vein Social History Social History Housing: Apartment Alcohol intake: current Alcohol intake frequency: a few times a week Patient Tobacco Use Status: Current everyday Tobacco user Tobacco use type: Cigarette Years Smoked: (onset 18yo, 1/2-3/4 ppd x 43yrs, 25+PYH) e-Cigarette/Vaping Use: Never Used Second Hand Smoke Exposure: Yes Advance Directives: No Advance Directives Information Provided: Yes service: No Current occupational status: employed Cognitive needs: No Hearing needs: No Vision needs: Yes Meds Allergies Allergy/AdvReac Type Severity Reaction Status Date / Time No Known Allergies Allergy Verified 11/15/23 10:16 [No Known Allergies*] Home Medications ?Medication ?Instructions ?Recorded ?Confirmed ?Last Taken ?Type Vitamin D (with calcium) 1 tab PO DAILY 07/07/20 11/15/23 Unknown History omeprazole 20 mg capsule,delayed 20 mg PO DAILY 07/07/20 11/15/23 Unknown History release timolol 0.25 % eye drops 1 drp ophthalmic (eye) DAILY 07/07/20 11/15/23 Unknown History Assessment and Plan Assessment Anesthesia Assessment: Chart Reviewed Documented by User: Ewa Majano MD 02/01/24 09:34 PMFSH Past Medical History Medical History Tubular adenoma of colon (~2017) Personal history of nicotine dependence History of deep vein thrombosis (DVT) of lower extremity (~07/2017) Annual physical exam Peripheral vascular disease Hypertension Erosive esophagitis Hypercholesterolemia Vitamin D deficiency Prothrombin [id number] mutation Lupus anticoagulant positive History of pulmonary embolism (~07/2017) Family History Family History Father Automobile accident Mother Breast cancer Sister Cancer Family history of problems with anesthesia: No Surgical History Surgical History History of esophagogastroduodenoscopy (EGD) History of colonoscopy S/P insertion of IVC (inferior vena caval) filter History of angioplasty of vein History of Problems with Anesthesia: No Social History Social History Housing: Apartment Alcohol intake: current Alcohol intake frequency: a few times a week Patient Tobacco Use Status: Current everyday Tobacco user Tobacco use type: Cigarette Years Smoked: (onset 18yo, 1/2-3/4 ppd x 43yrs, 25+PYH) e-Cigarette/Vaping Use: Never Used Second Hand Smoke Exposure: Yes Advance Directives: No Advance Directives Information Provided: Yes service: No Current occupational status: employed Cognitive needs: No Hearing needs: No Vision needs: Yes Meds Allergies Allergy/AdvReac Type Severity Reaction Status Date / Time No Known Allergies Allergy Verified 11/15/23 10:16 [No Known Allergies*] Home Medications ?Medication ?Instructions ?Recorded ?Confirmed ?Last Taken ?Type Vitamin D (with calcium) 1 tab PO DAILY 07/07/20 11/15/23 Unknown History omeprazole 20 mg capsule,delayed 20 mg PO DAILY 07/07/20 11/15/23 Unknown History release timolol 0.25 % eye drops 1 drp ophthalmic (eye) DAILY 07/07/20 11/15/23 Unknown History Exam Airway Mallampati Class: II TM Dist: >3cm Neck ROM: Limited Heart: rrr Lungs: cta Assessment and Plan Assessment Anesthesia Assessment: Anesthesia Plan Discussed Final Anesthetic Review Family History of Problems with Anesthesia: No History of Problems with Anesthesia: No NPO: Yes ASA Class: III Final Preanesthetic Review: No Changes in Pt Med Stat, Meds/Allgs Chart Reviewed, Consent Obtained/Reviewed and Anes Risks/Benef Reviewed Patient Risk: Intermediate Procedure Risk: Low Anesthetic Plan Anesthetic Plan: MAC: Disposition: Standard PACU
[2024-02-01 09:30] VITALS: BMI 25.0
[2024-02-01 09:35] VITALS: BP 140/89; PULSE 96; RESP 18; TEMP 36.2; O2SAT 97
[2024-02-01] MEDS: Lactated Ringers 1,000 ML 100 ML IVCONT (09:47)
--- NOTE | 2024-02-01 10:13 | PC.NURSE ---
24hr update documented on paper
[2024-02-01 11:17] VITALS: BP 102/65; PULSE 92; RESP 18; TEMP 36.6; O2SAT 96
--- NOTE | 2024-02-01 11:18 | P.BOP_ITS ---
Brief Operative Note Date of Service: 02/01/24 Pre-op diagnosis: Screening Post-op diagnosis: other (Colon polyps) Procedure: Colonoscopy to the cecum with hot snare polypectomy x 3 and placement of 1 Resolution clip on each polypectomy site. Surgeon: Sadiq Sevilla MD Anesthesia: MAC Was an Allergist/Pediatric Pulmonologist used for this Procedure?: No Estimated blood loss (mL): 0 Pathology: other (A. Transverse colon polyp B. Polyp at 60cm C. Polyp at 30cm) Condition: stable Disposition: PACU
[2024-02-01 11:32] VITALS: BP 109/73; PULSE 82; RESP 16; TEMP 36.1; O2SAT 99
--- NOTE | 2024-02-01 11:51 | OP_ITS ---
DATE OF SERVICE: 02/01/2024 SURGEON: Sadiq Sevilla MD INDICATIONS: The patient presents for evaluation of colorectal cancer screening and personal history of tubular adenoma of the colon. Full consent has been obtained from him for this, including risks of bleeding and perforation. PREOPERATIVE DIAGNOSIS: POSTOPERATIVE DIAGNOSIS: PROCEDURE PERFORMED: Colonoscopy to the cecum with hot snare polypectomy x3 and placement of a single Resolution clip on each polypectomy site. ESTIMATED BLOOD LOSS: COMPLICATIONS: ANESTHESIA: Monitored anesthesia care. ASSISTANTS: SPECIMENS: PREOPERATIVE DIAGNOSES: Colorectal cancer screening and personal history of tubular adenomas of the colon. POSTOPERATIVE DIAGNOSES: Colorectal cancer screening, personal history of tubular adenomas of the colon, colon polyps, diverticulosis, and internal hemorrhoids. DESCRIPTION OF PROCEDURE: The patient was placed in the left lateral decubitus position. The digital rectal exam revealed no abnormalities. The Olympus video pediatric colonoscope was then entered into the rectum and advanced to the cecum with the assistance of abdominal wall pressure. Once in the cecum, I did identify normal-appearing cecal pouch with appendiceal orifice and a normal-appearing ileocecal valve. The entire cecum and ileocecal valve appeared normal. The scope was slowly withdrawn assessing all mucosal surfaces carefully. Preparation was excellent. In the transverse colon, at 60 cm, and at 30 cm, approximately 6 to 8 mm grossly adenomatous polyps, which were all removed by hot snare polypectomy and recovered by suction. The polypectomy sites appeared clean, without any sign of residual polyp nor bleeding. A single Resolution clip was applied to each polypectomy site with good deployment and good hemostasis. I did not visualize any other polyps, colitis, nor angiodysplasias. There was a mild amount of sigmoid diverticulosis. In the rectum, scope was retroflexed, visualizing small internal hemorrhoids, but no other pathology. The rectal mucosa appeared normal. Scope was straightened and withdrawn from the patient. He tolerated the procedure well and was returned to the recovery area in stable condition. IMPRESSION: 1. Colon polyps. 2. Diverticulosis. 3. Internal hemorrhoids. PLAN: The results of the pathology will be checked. I would recommend a repeat colonoscopy in 5 years. He was advised to resume his Xarelto in 48 hours on Tuesday, February 02. He was advised not to use any aspirin and NSAIDs for least 1 week, but he should be off those long-term while he is on his Xarelto. He will, otherwise, see me on a p.r.n. basis. MD JOSE Velazquez/DARIN / [id number]
== END 2024-02-01 12:02 | disposition home or self-care (01) ==
PROVIDERS: PCP Internal Medicine; Visit Provider Internal Medicine
PROC: 0DJD8ZZ Inspection of Lower Intestinal Tract, Via Natural or Artificial Opening Endoscopic (ICD-10-PCS; CPT 45378; principal; 2024-02-01 10:20)
DX: Z12.11 Encounter for screening for malignant neoplasm of colon (principal); D12.3 Benign neoplasm of transverse colon; D12.4 Benign neoplasm of descending colon; D12.5 Benign neoplasm of sigmoid colon; K57.30 Diverticulosis of large intestine without perforation or abscess without bleeding; K64.8 Other hemorrhoids; Z86.010 Personal history of colon polyps; I10 Essential (primary) hypertension; E78.00 Pure hypercholesterolemia, unspecified; J44.9 Chronic obstructive pulmonary disease, unspecified; R76.0 Raised antibody titer; Z87.891 Personal history of nicotine dependence; Z86.718 Personal history of other venous thrombosis and embolism; Z86.711 Personal history of pulmonary embolism; Z79.899 Other long term (current) drug therapy
CPT/HCPCS: 45385; 88305; J2704; J3010

== ENCOUNTER 2024-02-14 08:54 | Outpatient (AMB) | payer BC, SELFPAY ==
[2024-02-14 09:03] VITALS: BP 140/82; PULSE 75; O2SAT 96; BMI 25.7
--- NOTE | 2024-02-14 09:03 | MHC.PC.OV ---
Vital Signs 02/14/24 09:03 Height 5 ft 9 in Weight 174 lb BMI 25.7 BP 140/82 H Blood Pressure Location Lt brachial Position Sitting Pulse 75 Pulse Source Pulse Oximeter Pulse Oximetry (%) 96 Oxygen Delivery Method Room Air Intake Visit Reasons: pe Allergies No Known Allergies [No Known Allergies*] Allergy (Verified 02/14/24 09:04) Medication List - Last Reconciled 02/14/24 by Ed Yuen MD albuterol sulfate 90 mcg/actuation (ProAir HFA) 2 puffs inhalation Q6H PRN diclofenac sodium 1% (Voltaren Arthritis Pain) 4 grams topical QID lisinopril 10 mg PO DAILY 90 days omeprazole 20 mg PO DAILY rivaroxaban (Xarelto) 10 mg PO DAILY simvastatin 10 mg PO BEDTIME timolol 0.25% 1 drp ophthalmic (eye) DAILY [Vitamin D (with calcium) 1 tab PO DAILY] Tobacco use date assessed: 02/14/24 Dental Screening Dental Screen Date: 02/14/24 Did you have a dental visit in the last 12 months?: No Did you have a dental problem in the last 6 months where you did not have access to dental care?: No Was dental information given to patient?: No HPI pe HPI Details 63-year-old male with a history of COPD impaired glucose tolerance hypertension hypercholesterolemia and positive for lupus anticoagulant coming in for physical exam last seen in April 2023. Patient's last colonoscopy was January 2024 with tubular adenoma. 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 Lupus anticoagulant positive History of pulmonary embolism (~07/2017) Surgical History History of esophagogastroduodenoscopy (EGD) History of colonoscopy S/P insertion of IVC (inferior vena caval) filter History of angioplasty of vein Family History Father Automobile accident Mother Breast cancer Sister Cancer Social History (Updated 02/14/24 @ 09:21 by Ed Yuen MD) Housing: Apartment Alcohol intake: current Alcohol intake frequency: a few times a week Comment: 2 days weekend 6 pack Patient Tobacco Use Status: Current everyday Tobacco user Tobacco use type: Cigarette Cigarettes Per Day: 15 Years Smoked: 50 still smoking e-Cigarette/Vaping Use: Never Used Second Hand Smoke Exposure: Yes service: No Current occupational status: employed Cognitive needs: No Hearing needs: No Vision needs: Yes Questionnaire PHQ-9 Over the last 2 weeks, how often have you been bothered by any of the following problems? 1. Little interest or pleasure in doing things: not at all 2. Feeling down, depressed, or hopeless: not at all 3. Trouble falling or staying asleep, or sleeping too much: not at all 4. Feeling tired or having little energy: not at all 5. Poor appetite or overeating: not at all 6. Feeling bad about yourself - or that you are a failure or have let yourself or your family down: not at all 7. Trouble concentrating on things, such as reading the newspaper or watching television: not at all 8. Moving or speaking so slowly that other people could have noticed. Or the opposite - being so fidgety or restless that you have been moving around a lot more than usual: not at all 9. Thoughts that you would be better off or of hurting yourself in some way: not at all Total score: 0 Depression Screening Interpretation: Negative Depression Screening Done: Yes Source: Developed by Drs. Sadiq Simmons, Jeanette Park, Shawn Webb and colleagues, with an educational julissa from [employer]. Thrive Questionnaire Date Thrive assessed: 02/14/24 I am a: Patient What is your living situation today?: I have a steady place to live Within the past 12 months, did the food you bought not last and you didn't have the money to get more?: Never true Within the past 12 months, did you worry whether your food would run out before you got money to buy more?: Never true Do you have trouble paying for medicines?: No Do you have trouble getting transportation to medical appointments?: No Do you have trouble paying your heating and electricity bill?: No Do you have trouble taking care of your child, family member or friend?: No Do you have trouble with day-to-day activities such as bathing, preparing meals, shopping, managing finances, etc.?: No Are you currently unemployed and looking for a job?: No Are you interested in more education?: No Currently or been in a relationship where the following occur: No concerns reported THRIVE Score: 0 AUDIT C Alcohol Use Questionnaire (AUDIT-C) 1. How often do you have a drink containing alcohol?: 2-3 times a week 2. How many drinks containing alcohol do you have on a typical day when you are drinking?: 3 or 4 3. How often do you have six or more drinks on one occasion?: Less than monthly Total Score: 5 JARVIS-7 AMB Questionnaire JARVIS-7 Date JARVIS - 7 assessed: 02/14/24 Feeling nervous, anxious, or on edge: 0 = Not at all Not being able to stop or control worryin = Not at all Worrying too much about different things: 0 = Not at all Trouble relaxin = Not at all Being so restless that it is hard to sit still: 0 = Not at all Becoming easily annoyed or irritable: 0 = Not at all Feeling afraid as if something awful might happen: 0 = Not at all Total JARVIS-7 score (0-4 normal; 5-9 mild; 10-14 moderate; 15-21 severe): 0 Source: Developed by Drs. Sadiq Simmons, Jeanette Park, Shawn Webb and colleagues, with an educational julissa from [employer]. Review of Systems Const Denies poor appetite and Denies weakness Eyes Denies no additional complaints ENT Reports Normal hearing present, Denies dizziness, Denies nasal congestion, Denies tinnitus and Denies sore throat Card Denies chest pain, Denies syncope, Denies rapid heart rate and Denies dyspnea Resp Denies cough and Denies dyspnea GI Denies change in stool character, Reports constipation, Denies diarrhea, Denies nausea and Denies vomiting Denies dysuria and Denies urinary frequency Neuro Reports Normal hearing present, Denies confusion, Denies dizziness, Denies syncope and Denies weakness Psych Denies confusion Physical exam (Primary Care) Vital Signs: Last Vital Signs Pulse 75 02/14/24 09:03 BP 140/82 H 02/14/24 09:03 Pulse Ox 96 02/14/24 09:03 Oxygen Delivery Method Room Air 02/14/24 09:03 BMI result Body Mass Index 25.7 Tobacco/Smoking Status: Tobacco use Status Tobacco use date assessed 02/14/24 02/14/24 09:08 Patient Tobacco Use Status Current everyday Tobacco 02/14/24 09:08 Tobacco use type Cigarette 02/14/24 09:08 e-Cigarette/Vaping Use Never Used 02/14/24 09:08 PHQ-9: PHQ-9 Score PHQ-9: Total score 0 02/14/24 09:08 Depression Screening Interpretation: Negative Thrive Assessment: Date of Thrive Assessment Date Thrive assessed 02/14/24 02/14/24 09:08 Currently or been in a relationship where the following occur: No concerns reported Const General: No confusion Orientation/consciousness: No confusion HENMT Head: Yes normocephalic Ears: external ears normal and TM's normal bilaterally Face and sinus: Yes normal facial exam Mouth: moist mucous membranes Throat: Yes tonsils normal Eyes Conjunctivae: conjunctivae normal Pupils: Equal, round and reactive pupils present and Pupil accommodation reflex normal Direct Ophthalmoscopy: normal light reflex Neck Neck: No lymphadenopathy Thyroid: Thyroid normal Chest Chest palpation & inspection: normal inspection of the chest Resp Effort & Inspection: normal respiratory effort and no audible wheezes Auscultation: clear to auscultation bilaterally, no crackles, no wheezes and lung sounds not diminished Cardio Rate: regular rate Rhythm: regular rhythm Peripheral pulses: radial pulses present and dorsalis pedis present GI Other: Copy 01/2024 Palpation (GI): no masses Auscultation: normal bowel sounds and normoactive bowel sounds Rectal Exam - Male: Yes deferred Male General Exam: Yes normal external exam Skin General skin exam: no rashes or lesions noted Rashes: no rashes Neuro General: No confusion Cranial nerves: Yes Equal, round and reactive pupils present and Yes Normal hearing present Cognition (Neuro): normal cognition Gait exam (Neuro): Normal gait present Motor exam (neuro): 5/5 motor strength present throughout Deep tendon reflexes (DTR's): Right brachioradialis reflex intensity grade: 2+, Left brachioradialis reflex intensity grade: 2+, Right patellar reflex intensity grade: 2+ and Left patellar reflex intensity grade: 2+ Extrem General: No edema Assessment and Plan Assessment & Plan (1) Annual physical exam: Code(s): Z00.00 - Encounter for general adult medical examination without abnormal findings Plan: Patient is advised to eat healthy, keep well hydrated, keep active and have adequate sleep. (2) COPD (chronic obstructive pulmonary disease): Comment: 2010 PFT Code(s): J44.9 - Chronic obstructive pulmonary disease, unspecified Plan: Currently on albuterol rescue inhaler (3) Lupus anticoagulant positive: Code(s): R76.0 - Raised antibody titer Plan: Patient follows up with Hematology-Oncology on Xarelto maintenance (4) Hypertension: Code(s): I10 - Essential (primary) hypertension Qualifiers: Hypertension type: essential hypertension Qualified Code(s): I10 - Essential (primary) hypertension Plan: Continue with blood pressure medication. Decrease salt intake and exercise takes lisinopril 10 mg once a day only (5) Hypercholesterolemia: Code(s): E78.00 - Pure hypercholesterolemia, unspecified Plan: Avoid fried foods, chicken skin, eggs, butter margarine, pastries and meat. Be it pork or beef they have a lot of cholesterol LDL goal of less than 130 and triglyceride of less than 150 on simvastatin 10 mg once a day (6) Impaired glucose tolerance: Code(s): R73.02 - Impaired glucose tolerance (oral) Plan: Decrease the amount of carbohydrate intake, pasta, bread, rice and potatoes are all sugar and that is aside from all the sweet stuff, remember that fruits are good but they are Sweet also. (7) Personal history of nicotine dependence: Comment: (current smoker - onset 18yo, 1/2-3/4 ppd x 43yrs, 25+PYH) CT scan done February 2022 Code(s): Z87.891 - Personal history of nicotine dependence Plan: 03/13/[address] scan (8) Tubular adenoma of colon: Onset Date: ~2017 Comment: (4 TAs on 2018 scope), 01/2024 Code(s): D12.6 - Benign neoplasm of colon, unspecified Plan: repeat test 5 years (9) Tobacco abuse: Code(s): Z72.0 - Tobacco use Plan: not ready to stop. Orders: Orders Comprehensive Met. Panel Today R73.02 - Impaired glucose tolerance (oral) Free T4 (Free Thyroxine) Today R73.02 - Impaired glucose tolerance (oral) Thyroid Stimulating Hormone Today R73.02 - Impaired glucose tolerance (oral) Vitamin B12 and Folate Today R73.02 - Impaired glucose tolerance (oral) Complete Blood Count Auto Diff Today R73.02 - Impaired glucose tolerance (oral) Lipid Panel Today E78.00 - Pure hypercholesterolemia, unspecified, R73.02 - Impaired glucose tolerance (oral) Prostate Specific Antigen Scr Today R73.02 - Impaired glucose tolerance (oral) Hemoglobin A1c Today R73.02 - Impaired glucose tolerance (oral) Referrals Lung Cancer Screening Referral Z87.891 - Personal history of nicotine dependence Coding Level of Care Code Est Pt Prev Care 40-64y(53519) Diagnoses Annual physical exam Z00.00 COPD (chronic obstructive pulmonary disease) J44.9 Lupus anticoagulant positive R76.0 Essential hypertension I10 Hypertension type: essential hypertension Hypercholesterolemia E78.00 Impaired glucose tolerance R73.02 Personal history of nicotine dependence Z87.891 Tubular adenoma of colon D12.6 Tobacco abuse Z72.0
== END 2024-02-14 09:39 | disposition home or self-care (01) ==
PROVIDERS: PCP Internal Medicine; Visit Provider Internal Medicine
DX: Z00.00 Encounter for general adult medical examination without abnormal findings (principal); J44.9 Chronic obstructive pulmonary disease, unspecified; R76.0 Raised antibody titer; I10 Essential (primary) hypertension; E78.00 Pure hypercholesterolemia, unspecified; R73.02 Impaired glucose tolerance (oral); Z87.891 Personal history of nicotine dependence; D12.6 Benign neoplasm of colon, unspecified; Z72.0 Tobacco use
CPT/HCPCS: 99396

== ENCOUNTER 2024-07-20 14:52 | Outpatient (REF) | payer BC, SELFPAY ==
--- OUTSIDE RECORDS SUMMARY | 2024-07-20 14:54 | XMS_ITS ---
Author Organization [facility] Address [address] [place] [address] Care Team Providers Care Protection Agent Name Role Phone Po Ed HO Primary Care Provider Sadiq Ramos [phone] REASON FOR VISIT Xarelto / Lovenox Encounters Encounter Location Date Provider Diagnosis [facility] [address] [place] [address] 08/11/2023 Sadiq Sevilla PLAN OF TREATMENT No Information
--- OUTSIDE RECORDS SUMMARY | 2024-07-20 14:54 | XMS_ITS | Patient Health Record ---
Author Organization [facility] Address [address] [place] [address] Care Team Providers Care Quality Tech Name Role Phone Ed Yuen MD Primary Care Provider Sadiq Ramos [phone] ALLERGIES No Known Allergies RESULTS Component Value Reference Range Notes Pathology (Not yet reviewed by provider) Interpretation: Performing Lab:[facility], [address] [place] [address] Notes/Report: REASON FOR REFERRAL No Information MEDICATIONS Medication SIG (Take, Route, Fr equency, Duration) Notes Start Date End Date Status Simvastatin 10 MG TAKE 1 TABLET BY DEYSI TH EVERYDAY AT BEDTIME Oral for 90 Active Xarelto 10 MG Oral for 30 Acti ve Omeprazole 20 MG TAKE 1 CAPSULE BY MO UTH EVERY DAY IN THE MORNING for 90 Active Timolol Maleate 0.5 % 1 drop into affect ed eye Ophthalmic Once a day Active Vitamin D2 Active IMMUNIZATIONS Vaccine Route Administration Date Status Comme nts Influenza Unknown 03/25/2018 Administered SOCIAL HISTORY Tobacco Use: Social History Observation Description Date Details (start date - stop date) Current Smoker NA - NA Sex Assigned At : Social History Observation Description Sex Assigned At Unknown Tobacco Use/Smoking Question Answer Notes Patient is a current smoker How often do you smoke cigarettes? every day How many cigarettes a day do you smoke? 11-20 Alcohol Screen Question Answer Notes Did you have a drink contain ing alcohol in the past year? Yes How often did you have a dri nk containing alcohol in the past year? 2 to 4 times a month (2 points) How many drinks did you have on a typical day when you were drinking in the past year? 5 or 6 drinks (2 points) How often did you have 6 or more drinks on one occasion in the past year? Weekly (3 points) Points 7 Interpretation Positive PROBLEMS Problem Type ICD Code Onset Dates Problem Status W/U Status Risk SNOMED Code Notes Problem Abnormal CT scan, esophagus (R93.3) Active confirmed 120547577 Problem Encounter for screening for malignant neoplasm of colon (Z12.11) Active confirmed 406916026 Problem Erosive esophagitis (K22.10) Active confirmed 67980855 Problem History of adenomatous polyp of colon (Z86.010) Active confirmed 540244502 Problem Hiatal hernia (K44.9) Active confirmed 08694478 Problem Diverticulosis of large intestine without perforation or abscess without bleeding (K57.30) Active confirmed Diverticul ar disease of colon (872740743) VITAL SIGNS Temperature 97.5 degrees Fahrenheit 08/11/2023 Blood pressure diastolic 00 mm Hg 08/11/2023 Height 69 in 08/11/2023 Blood pressure systolic 00 mm Hg 08/11/2023 Weight 175 lbs 08/11/2023 BMI 25.84 kg/m2 08/11/2023 Encounters Encounter Location Date Provider Diagnosis [facility] [place] Out[place] [address] [place] [phone] 02/01/2024 Sadiq Sevilla Encounter for screen ing colonoscopy Z12.11 ; Colon polyps K63.5 ; Diverticulosis of large intestine without perforation or abscess without bleeding K57.30 and Other hemorrhoids K64.8 [facility] [address] [facility] [address] [place] [phone] 08/11/2023 Sadiq Sevilla Erosive esophagitis K22.10 ; History of adenomatous polyp of colon Z86.010 and Encounter for screening for malignant neoplasm of colon Z12.11 [facility] [address] [place] [phone] 08/11/2023 Sadiq Sevilal [facility] [address] [facility] [address] [place] [phone] 10/01/2023 Sadiq Sevilla ASSESSMENTS Encounter Date Diagnosis Assessment Notes Treatment Notes Treatment Clinical Notes 02/01/2024 Encounter for screening colonoscopy (ICD-10 - Z12.11) 02/01/2024 Colon polyps (ICD-10 - K63.5) 08/11/2023 History of adenomatous polyp of colon (ICD-10 - Z86.010) 08/11/2023 Erosive esophagitis (ICD-10 - K22.10) 02/01/2024 Diverticulosis of large intestine without perforation or abscess without bleeding (ICD-10 - K57.30) 08/11/2023 Encounter for screening for malignant neoplasm of colon (ICD-10 - Z12.11) Stop Xarelto for 3 days before the colonoscopy and get a prescription for Lovenox from Dr. Larsen. 02/01/2024 Other hemorrhoids (ICD-10 - K64.8) PLAN OF TREATMENT Pending Test Test Name Order Date Pathology 02/01/2024 Future Test Test Name Order Date UPPER GI ENDOSCOPY 09/16/2017 COLONOSCOPY 09/16/2017 COLONOSCOPY 08/11/2023 Insurance Providers Payer Name Payer Address Payer Phone Subscriber Number Group Number Insured Name Patient Relationship to Insured Coverage Start Date Coverage End Date [facility] [address] [place], [place] [id number] [phone] [id number] ADELINA HALL Self - patient is the insured MEDICAL (GENERAL) HISTORY Medical History History ICD Code Denies [place],DM,CVA,Lung disease,renal dise ase DVT in RLE 07/2017 with a PE- -has a IVC filter--sees Dr. Larsen for a hypercoagulable state with a positive lupus anticoagulant and prothrombin mutation according to her note from April 2023 Glaucoma EGD 11/2017--Mod-sized HH, erosive esopha gitis--no [facility] Screening colonoscopy 11/2017--several tu bular adenomas removed Surgical History Surgery Date(Month/Year) DVT right leg 07/30/2017
--- OUTSIDE RECORDS SUMMARY | 2024-07-20 14:54 | XMS_ITS ---
Author Organization [facility] Address [address] [place] [address] Care Team Providers Care Campaign Marketing Manager Name Role Phone Po Ed HO Primary Care Provider Sadiq Ramos Unavailable [phone] REASON FOR VISIT screening,hx polyps PROBLEMS Problem Type ICD Code Onset Dates Problem Status W/U Status Risk SNOMED Code Notes Problem Diverticulosis of large intestine without perforation or abscess without bleeding (K57.30) Active confirmed Diverticul ar disease of colon (892719939) Encounters Encounter Location Date Provider Diagnosis [facility] [place] [address], [place] [phone] 02/01/2024 Sadiq Sevilla Encounter for scre ening colonoscopy Z12.11 ; Colon polyps K63.5 ; Diverticulosis of large intestine without perforation or abscess without bleeding K57.30 and Other hemorrhoids K64.8 ASSESSMENTS Encounter Date Diagnosis Assessment Notes Treatment Notes Treatment Clinical Notes 02/01/2024 Encounter for screening colonoscopy (ICD-10 - Z12.11) 02/01/2024 Colon polyps (ICD-10 - K63.5) 02/01/2024 Diverticulosis of large intestine without perforation or abscess without bleeding (ICD-10 - K57.30) 02/01/2024 Other hemorrhoids (ICD-10 - K64.8) PLAN OF TREATMENT No Information
--- OUTSIDE RECORDS SUMMARY | 2024-07-20 14:54 | XMS_ITS ---
Author Organization [facility] Address [address] [place] [address] Care Team Providers Care Fishing Tool Supervisor Name Role Phone Po Ed HO Primary Care Provider Sadiq Ramos [phone] Encounters Encounter Location Date Provider Diagnosis [facility] [address] [place] [address] 10/01/2023 Sadiq Sevilla PLAN OF TREATMENT No Information
== END 2024-07-20 14:53 | disposition home or self-care (01) ==
LOC: HO.CT 14:52
PROVIDERS: PCP Internal Medicine; Visit Provider Physician Assistant Medical
DX: Z12.2 Encounter for screening for malignant neoplasm of respiratory organs (principal); F17.210 Nicotine dependence, cigarettes, uncomplicated
CPT/HCPCS: 71271

== ENCOUNTER → 2024-07-20 14:53 | Outpatient (BNV) | payer BC, SELFPAY | PROVIDERS: PCP Internal Medicine; Visit Provider Radiology Diagnostic Radiology | DX: Z12.2 Encounter for screening for malignant neoplasm of respiratory organs (principal); F17.210 Nicotine dependence, cigarettes, uncomplicated | CPT/HCPCS: 71271 ==

== ENCOUNTER 2024-08-15 07:47 | Outpatient (REF) | payer BC, SELFPAY ==
--- OUTSIDE RECORDS SUMMARY | 2024-08-15 07:50 | XMS_ITS ---
Author Organization [facility] Address [address] [place] [address] Care Team Providers Care Furnace Operator Name Role Phone Po Ed HO Primary Care Provider Sadiq Ramos Unavailable [phone] REASON FOR VISIT screening,hx polyps PROBLEMS Problem Type ICD Code Onset Dates Problem Status W/U Status Risk SNOMED Code Notes Problem Diverticulosis of large intestine without perforation or abscess without bleeding (K57.30) Active confirmed Diverticul ar disease of colon (860433588) Encounters Encounter Location Date Provider Diagnosis [facility] [place] [address] [place], [place] [phone] 02/01/2024 Sadiq Sevilla Encounter for scre ening [...]
--- OUTSIDE RECORDS SUMMARY | 2024-08-15 07:50 | XMS_ITS ---
Author Organization [facility] Address [address] [place] [address] Care Team Providers Care Certified Energy Manager Name Role Phone Po Ed HO Primary Care Provider Sadiq Ramos [phone] Encounters Encounter Location Date Provider Diagnosis [facility] [address] [place] [address] 10/01/2023 Sadiq Sevilla PLAN OF TREATMENT No Information
--- OUTSIDE RECORDS SUMMARY | 2024-08-15 07:50 | XMS_ITS ---
Author Organization [facility] Address [address] [place] [address] Care Team Providers Care Chocolate Coater Name Role Phone Po Ed HO Primary Care Provider Sadiq Ramos [phone] REASON FOR VISIT Xarelto / Lovenox Encounters Encounter Location Date Provider Diagnosis [facility] [address] [place] [address] 08/11/2023 Sadiq Sevilla PLAN OF TREATMENT No Information
--- OUTSIDE RECORDS SUMMARY | 2024-08-15 07:50 | XMS_ITS | Patient Health Record ---
Author Organization [facility] Address [address] [place] [address] Care Team Providers Care Warehouse Supervisor 3Rd Shift Name Role Phone Ed Yuen MD Primary Care Provider Sadiq Ramos [phone] ALLERGIES No Known Allergies RESULTS Component Value Reference Range Notes Pathology Reviewed date:07/31/2024 10:53:54 PM Interpretation: Performing Lab:[facility], [address] [place] [phone] Notes/Report: REASON FOR REFERRAL No Information MEDICATIONS Medication SIG (Take, Route, Fr equency, Duration) Notes Start Date End Date Status Omeprazole 20 MG TAKE 1 CAPSULE BY MO UTH EVERY DAY IN THE MORNING for 90 Active Simvastatin 10 MG TAKE 1 TABLET BY DEYSI TH EVERYDAY AT BEDTIME Oral for 90 Active Xarelto 10 MG Oral for 30 Acti ve Timolol Maleate 0.5 % 1 drop into [...] Abnormal CT scan, esophagus (R93.3) Active confirmed 095738338 Problem Encounter for screening for malignant neoplasm of colon (Z12.11) Active confirmed 583610971 Problem Erosive esophagitis (K22.10) Active confirmed 02757090 Problem History of adenomatous polyp of colon (Z86.010) Active confirmed 347579955 Problem Hiatal hernia (K44.9) Active confirmed 59395276 Problem Diverticulosis of large intestine without perforation or abscess without bleeding (K57.30) Active confirmed Diverticul ar disease of colon (806813643) Encounters Encounter Location Date Provider Diagnosis [facility] [place] [address] [place], [place] [phone] 02/01/2024 Sadiq Sevilla Encounter for screen ing colonoscopy Z12.11 ; Colon polyps K63.5 ; Diverticulosis of large intestine without perforation or abscess without bleeding K57.30 and Other hemorrhoids K64.8 [facility] [address] [place] [address] 10/01/2023 Sadiq Sevilla ASSESSMENTS Encounter Date Diagnosis Assessment Notes Treatment Notes Treatment Clinical Notes 02/01/2024 Encounter for screening colonoscopy (ICD-10 - Z12.11) 02/01/2024 Colon polyps (ICD-10 - K63.5) 02/01/2024 Diverticulosis of large intestine without perforation or abscess without bleeding (ICD-10 - K57.30) 02/01/2024 Other hemorrhoids (ICD-10 - K64.8) PLAN OF TREATMENT Future Test Test Name Order Date UPPER GI ENDOSCOPY 09/16/2017 COLONOSCOPY 09/16/2017 COLONOSCOPY 08/11/2023 Insurance Providers Payer Name Payer Address Payer Phone Subscriber Number Group Number Insured Name Patient Relationship to Insured Coverage Start Date Coverage End Date [facility] [address] [place], [place] [id number] [phone] [id number] ADELINA HALL Self - patient is the insured MEDICAL (GENERAL) HISTORY Medical History History ICD Code Denies [place],DM,CVA,Lung disease,renal dise ase DVT in R[place] 07/2017 [...]
[2024-08-15 08:01] LABS: MANUAL DIFF FLAG NO
[2024-08-15 08:25] LABS: Basophils Absolute Auto 0.1 X10*3/uL (0.0-0.2); Basophils Percent Auto 0.8 % (0-2); Eosinophils Absolute Auto 0.3 X10*3/uL (0.0-0.4); Eosinophils Percent Auto 4.2 % (0-4); Estimated Average Glucose 123 mg/dL; Hematocrit 47.5 % (42.0-52.0); Hemoglobin 16.3 g/dl (14.0-18.0); Hemoglobin A1C 166.7166 umol/L; Hemoglobin A1c % 5.9 % (<6.0); Imm Gran Abs Auto 0.02 X10*3/uL (0.00-0.03); Imm Gran Pct Auto 0.3 % (0.0-0.4); Lymphocytes Absolute Auto 2.8 X10*3/uL (1.2-4.9); Mean Corpuscular HGB Conc 34.3 g/dl (31.0-36.0); Mean Corpuscular Hemoglobin 31.2 pg (27.0-33.0); Mean Corpuscular Volume 90.8 fL (80.0-98.0); Mean Platelet Volume 8.8 fL (9.4-12.4); Monocytes Absolute Auto 0.8 X10*3/uL (0.1-1.2); Monocytes Percent Auto 10.2 % (2-11); Neutrophils Absolute Auto 3.5 x10*3/uL (2.0-8.3); Neutrophils Percent Auto 47.5 % (45-73); Platelet Count 235 X10*3/uL (160-400); Red Blood Count 5.23 X10*6/uL (4.60-5.80); Total Hemoglobin (HGBA1C) 4118.7841 umol/L; White Blood Count 7.4 X10*3/uL (4.8-10.8)
[2024-08-15 08:49] LABS: Alanine Aminotransferase 24 U/L (0-40); Albumin Level 4.4 g/dL (3.5-5.0); Alkaline Phosphatase 67 U/L (39-117); Anion Gap 9 (12-20); Aspartate Amino Transferase 28 U/L (5-37); Bilirubin Total 0.9 mg/dL (0.0-1.0); Blood Urea Nitrogen 18 mg/dL (9-16); Calcium 9.9 mg/dL (8.4-10.2); Carbon Dioxide 28 mmol/L (22-29); Chloride 106 mmol/L (96-108); Cholesterol 191 mg/dL (<200); Estimated Glomerular Filt Rate > 60; Glucose Random 101 mg/dL (60-115); HDL Cholesterol 40 mg/dL (>40); LDL Cholesterol Calculated 109 mg/dL (<100); Potassium 3.9 mmol/L (3.3-5.1); Sodium 139 mmol/L (135-145); Triglycerides 211 mg/dL (<150)
[2024-08-15 09:04] LABS: Free T4 (Free Thyroxine) 0.96 ng/dL (0.71-1.85); Thyroid Stimulating Hormone 3.46 uIU/mL (0.32-4.0)
[2024-08-15 09:12] LABS: Folate 15.3 ng/mL (> or = 4.0); Prostate Specific Antigen Scr 1.23 ng/mL (<0.05-4.0); Vitamin B12 358 pg/mL (200-900)
== END 2024-08-15 07:48 | disposition home or self-care (01) ==
LOC: HO.LAB 07:47
PROVIDERS: PCP Internal Medicine; Visit Provider Internal Medicine
DX: R73.02 Impaired glucose tolerance (oral) (principal); E78.00 Pure hypercholesterolemia, unspecified; Z12.5 Encounter for screening for malignant neoplasm of prostate
CPT/HCPCS: 36415; 80053; 80061; 82607; 82746; 83036; 84153; 84439; 84443; 85025

== ENCOUNTER 2024-08-16 09:43 | Outpatient (AMB) | payer BC, SELFPAY ==
--- NOTE | 2024-08-16 09:45 | MHC.PC.OV ---
Vital Signs 08/16/24 09:46 Height 5 ft 8 in Weight 173 lb BMI 26.3 BP 136/82 Blood Pressure Location Lt brachial Position Sitting Pulse 78 Pulse Source Pulse Oximeter Pulse Oximetry (%) 98 Oxygen Delivery Method Room Air Intake Visit Reasons: COPD Allergies No Known Allergies [No Known Allergies*] Allergy (Verified 08/16/24 09:48) Tobacco use date assessed: 08/16/24 Dental Screening Dental Screen Date: 08/16/24 Did you have a dental visit in the last 12 months?: Yes Did you have a dental problem in the last 6 months where you did not have access to dental care?: No Was dental information given to patient?: Patient has dentist HPI COPD HPI Details The patient is a 63-year-old male presenting with a history of asthma and tobacco use disorder. The patient continues to smoke approximately 3/4 of a pack of cigarettes daily. The patient's symptoms include increased use of an albuterol inhaler, particularly following exposure to industrial paint fumes at work, causing symptoms resembling an asthma exacerbation. He reports needing to use the inhaler more frequently recently, approximately every other day. Previously, inhaler use was rare. The patient initially felt acute respiratory symptoms after exposure to industrial fumes, including a sensation of chest tightness. He managed these symptoms with albuterol, administering doses at six-hour intervals and experiencing symptom relief. There was discussion of prescribing a controller inhaler to manage frequent symptoms and prevent exacerbations. Additionally, the patient's past blood work revealed a fasting blood glucose level indicative of prediabetes, previously recorded at 96 and currently at 101. He is advised to be mindful of diet, emphasizing the reduction of carbohydrate intake such as pasta, bread, and potatoes to prevent progression to diabetes. Lastly, the patient expressed a desire for improved blood sugar management, as well as contemplation about reducing smoking due to health and financial concerns. 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 Lupus anticoagulant positive History of pulmonary embolism (~07/2017) Surgical History History of esophagogastroduodenoscopy (EGD) History of colonoscopy S/P insertion of IVC (inferior vena caval) filter History of angioplasty of vein Family History Father Automobile accident Mother Breast cancer Sister Cancer Social History (Updated 02/14/24 @ 09:21 by Ed Yuen MD) Housing: Apartment Alcohol intake: current Alcohol intake frequency: a few times a week Comment: 2 days weekend 6 pack Patient Tobacco Use Status: Current everyday Tobacco user Tobacco use type: Cigarette Cigarettes Per Day: 15 Years Smoked: 50 still smoking e-Cigarette/Vaping Use: Never Used Second Hand Smoke Exposure: Yes service: No Current occupational status: employed Cognitive needs: No Hearing needs: No Vision needs: Yes Questionnaire PHQ-9 Over the last 2 weeks, how often have you been bothered by any of the following problems? 1. Little interest or pleasure in doing things: not at all 2. Feeling down, depressed, or hopeless: not at all 3. Trouble falling or staying asleep, or sleeping too much: not at all 4. Feeling tired or having little energy: not at all 5. Poor appetite or overeating: not at all 6. Feeling bad about yourself - or that you are a failure or have let yourself or your family down: not at all 7. Trouble concentrating on things, such as reading the newspaper or watching television: not at all 8. Moving or speaking so slowly that other people could have noticed. Or the opposite - being so fidgety or restless that you have been moving around a lot more than usual: not at all 9. Thoughts that you would be better off or of hurting yourself in some way: not at all Total score: 0 Depression Screening Interpretation: Negative Depression Screening Done: Yes Source: Developed by Drs. Sadiq Simmons, Jeanette Park, Shawn Webb and colleagues, with an educational julissa from [employer]. Thrive Questionnaire Date Thrive assessed: 08/16/24 I am a: Patient What is your living situation today?: I have a steady place to live Within the past 12 months, did the food you bought not last and you didn't have the money to get more?: Never true Within the past 12 months, did you worry whether your food would run out before you got money to buy more?: Never true Do you have trouble paying for medicines?: No Do you have trouble getting transportation to medical appointments?: No Do you have trouble paying your heating and electricity bill?: No Do you have trouble taking care of your child, family member or friend?: No Do you have trouble with day-to-day activities such as bathing, preparing meals, shopping, managing finances, etc.?: No Are you currently unemployed and looking for a job?: No Are you interested in more education?: No Currently or been in a relationship where the following occur: No concerns reported THRIVE Score: 0 AUDIT C Alcohol Use Questionnaire (AUDIT-C) 1. How often do you have a drink containing alcohol?: 2-3 times a week 2. How many drinks containing alcohol do you have on a typical day when you are drinking?: 3 or 4 3. How often do you have six or more drinks on one occasion?: Less than monthly Total Score: 5 JARVIS-7 AMB Questionnaire JARVIS-7 Date JARVIS - 7 assessed: 08/16/24 Feeling nervous, anxious, or on edge: 0 = Not at all Not being able to stop or control worryin = Not at all Worrying too much about different things: 0 = Not at all Trouble relaxin = Not at all Being so restless that it is hard to sit still: 0 = Not at all Becoming easily annoyed or irritable: 0 = Not at all Feeling afraid as if something awful might happen: 0 = Not at all Total JARVIS-7 score (0-4 normal; 5-9 mild; 10-14 moderate; 15-21 severe): 0 Source: Developed by Drs. Sadiq Simmons, Jeanette Park, Shawn Webb and colleagues, with an educational julissa from [employer]. Physical exam (Primary Care) Vital Signs: Last Vital Signs Pulse 78 08/16/24 09:46 BP 136/82 08/16/24 09:46 Pulse Ox 98 08/16/24 09:46 Oxygen Delivery Method Room Air 08/16/24 09:46 BMI result Body Mass Index 26.3 Tobacco/Smoking Status: Tobacco use Status Tobacco use date assessed 08/16/24 08/16/24 09:52 Patient Tobacco Use Status Current everyday Tobacco 08/16/24 09:52 Tobacco use type Cigarette 08/16/24 09:52 e-Cigarette/Vaping Use Never Used 08/16/24 09:52 PHQ-9: PHQ-9 Score PHQ-9: Total score 0 08/16/24 10:20 Depression Screening Interpretation: Negative Thrive Assessment: Date of Thrive Assessment Date Thrive assessed 08/16/24 08/16/24 09:52 Currently or been in a relationship where the following occur: No concerns reported Const General: alert; No acute distress Eyes Conjunctivae: conjunctivae normal Resp Auscultation: clear to auscultation bilaterally Cardio Rate: regular rate Rhythm: regular rhythm GI Inspection: Yes normal to inspection Extrem General: Yes normal to inspection and No edema Coding Level of Care Code Est Pt Level 4 (25010) Complex EM visit Add On G2211 Diagnoses Nicotine dependence, cigarettes, uncomplicated F17.210 COPD (chronic obstructive pulmonary disease) J44.9 Impaired glucose tolerance R73.02 Essential hypertension I10 Hypertension type: essential hypertension Hypercholesterolemia E78.00 Assessment & Plan Assessment & Plan (1) Nicotine dependence, cigarettes, uncomplicated: Comment: (current smoker - onset 18yo, 1/2-3/4 ppd x 45yrs, 25+PYH) CT scan 06/2024 Code(s): F17.210 - Nicotine dependence, cigarettes, uncomplicated Category: Medical Plan: CT scan 06/2024. 3/4 cigarettes a day (2) COPD (chronic obstructive pulmonary disease): Comment: 2010 PFT Code(s): J44.9 - Chronic obstructive pulmonary disease, unspecified Category: Medical Plan: on albuterol (3) Impaired glucose tolerance: Code(s): R73.02 - Impaired glucose tolerance (oral) Category: Medical (4) Hypertension: Code(s): I10 - Essential (primary) hypertension Category: Medical Qualifiers: Hypertension type: essential hypertension Qualified Code(s): I10 - Essential (primary) hypertension (5) Hypercholesterolemia: Code(s): E78.00 - Pure hypercholesterolemia, unspecified Category: Medical Plan - Asthma: Increase to a controller inhaler, to be used as prescribed, to improve symptom control. Continue with albuterol as needed for acute symptoms. Emphasize the importance of mouth rinsing post-inhaler use to prevent oral complications. - Tobacco Use Disorder: Encourage smoking cessation and discuss health implications of continued smoking. Highlight financial benefits of quitting. - Prediabetes: Monitor blood glucose levels, advise the patient on dietary modifications to reduce carbohydrate intake and maintain physical activity. Plan a re-evaluation with blood work in six months to assess progress. - Preventative Care: Encourage continued vaccination against influenza and maintain awareness of seasonal and occupational risks for respiratory infections like RSV and noroviruses. Reinforce general preventative measures and lifestyle modifications to support healthier long-term outcomes. Orders: Orders Complete Blood Count Auto Diff 6 Months R73.02 - Impaired glucose tolerance (oral) Free T4 (Free Thyroxine) 6 Months R73.02 - Impaired glucose tolerance (oral) Thyroid Stimulating Hormone 6 Months R73.02 - Impaired glucose tolerance (oral) Vitamin B12 and Folate 6 Months R73.02 - Impaired glucose tolerance (oral) Hemoglobin A1c 6 Months R73.02 - Impaired glucose tolerance (oral) Comprehensive Met. Panel 6 Months R73.02 - Impaired glucose tolerance (oral) Lipid Panel 6 Months E78.00 - Pure hypercholesterolemia, unspecified, R73.02 - Impaired glucose tolerance (oral) Medications: New fluticasone propion-salmeterol 113 mcg-14 mcg/actuation (AirDuo Digihaler) 1 inh inhalation BID 1 ea 4RF J44.9 - Chronic obstructive pulmonary disease, unspecified
[2024-08-16 09:46] VITALS: BP 136/82; PULSE 78; O2SAT 98; BMI 26.3
== END 2024-08-16 10:37 | disposition home or self-care (01) ==
PROVIDERS: PCP Internal Medicine; Visit Provider Internal Medicine
DX: F17.210 Nicotine dependence, cigarettes, uncomplicated (principal); J44.9 Chronic obstructive pulmonary disease, unspecified; R73.02 Impaired glucose tolerance (oral); I10 Essential (primary) hypertension; E78.00 Pure hypercholesterolemia, unspecified

== ENCOUNTER 2025-02-11 06:15 | Outpatient (REF) | payer BC, SELFPAY ==
--- OUTSIDE RECORDS SUMMARY | 2024-02-01 06:30 | XMS_ITS ---
Author Organization [facility] Address [address] [place] [address] Care Team Providers Care Campus Recruiting Intern Name Role Phone Po Ed HO Primary Care Provider Sadiq Ramos Unavailable [phone] REASON FOR VISIT screening,hx polyps Problems Problem Type SNOMED Code ICD Code Onset Dates Problem Status W/U Status Risk Notes Problem Diverticular disease of colon (120703197) Diverticulosis of large intestine without perforation or abscess without bleeding (K57.30) Active confirmed Encounters Encounter Location Date Provider Diagnosis [facility] [place] [address] [place], [place] [phone] 02/01/2024 Sadiq Sevilla Encounter for scre ening [...] Notes * ADELINA ROBERTSONDOB:1960 (64 yo M)Acc No.[id number]:02/01/2024 COLON WITH MAC Patient: Shu ZEKELIGIARAJESH ADELINA Provider: Shu Sevilla MD :1960 A ge:63 Y S ex:Male Date:02/01/2024 Address:[address] [place], [place] [phone] Pcp:Ed Yuen MD Subjective: * Chief Complaints: [...] 0 02/01/2024 Generated for Elva blanca/Charles/Haileyitting on: 0 02/11/2025 06:17 AM EDT
[2025-02-11 06:42] LABS: MANUAL DIFF FLAG NO
[2025-02-11 07:34] LABS: Hematocrit 47.0 % (42.0-52.0); Hemoglobin 15.9 g/dl (14.0-18.0); Imm Gran Abs Auto 0.02 X10*3/uL (0.00-0.03); Imm Gran Pct Auto 0.2 % (0.0-0.4); Lymphocytes Absolute Auto 3.4 X10*3/uL (1.2-4.9); Mean Corpuscular HGB Conc 33.8 g/dl (31.0-36.0); Mean Corpuscular Hemoglobin 31.2 pg (27.0-33.0); Mean Corpuscular Volume 92.2 fL (80.0-98.0); NRBC Abs Auto 0.000 X10*3/uL (0.0-0.012); NRBC Pct Auto 0.0 /100WBC (0.0-0.2); Platelet Count 225 X10*3/uL (160-400); Red Blood Count 5.10 X10*6/uL (4.60-5.80); White Blood Count 9.3 X10*3/uL (4.8-10.8)
[2025-02-11 08:17] LABS: Hemoglobin A1C 165.0746 umol/L; Total Hemoglobin (HGBA1C) 4117.0006 umol/L
[2025-02-11 08:21] LABS: Alanine Aminotransferase 19 U/L (0-40); Albumin Level 4.5 g/dL (3.5-5.0); Alkaline Phosphatase 68 U/L (39-117); Anion Gap 13 (12-20); Aspartate Amino Transferase 26 U/L (5-37); Blood Urea Nitrogen 22 mg/dL (9-16); Calcium 9.2 mg/dL (8.4-10.2); Carbon Dioxide 27 mmol/L (22-29); Chloride 105 mmol/L (96-108); Cholesterol 182 mg/dL (<200); Estimated Glomerular Filt Rate > 60; HDL Cholesterol 45 mg/dL (>40); Potassium 4.2 mmol/L (3.3-5.1); Sodium 141 mmol/L (135-145); Total Protein 7.4 g/dL (6.5-8.0); Triglycerides 142 mg/dL (<150)
[2025-02-11 08:45] LABS: Free T4 (Free Thyroxine) 0.90 ng/dL (0.71-1.85); Thyroid Stimulating Hormone 6.09 uIU/mL (0.32-4.0)
[2025-02-11 08:48] LABS: Folate 7.4 ng/mL (> or = 4.0); Vitamin B12 333 pg/mL (200-900)
== END 2025-02-11 06:16 | disposition home or self-care (01) ==
LOC: HO.LAB 06:15
PROVIDERS: PCP Internal Medicine; Visit Provider Internal Medicine
DX: R73.02 Impaired glucose tolerance (oral) (principal); E78.00 Pure hypercholesterolemia, unspecified
CPT/HCPCS: 36415; 80053; 80061; 82607; 82746; 83036; 84439; 84443; 85025

== ENCOUNTER 2025-02-13 09:06 | Outpatient (AMB) | payer BC, SELFPAY ==
--- OUTSIDE RECORDS SUMMARY | 2024-02-01 06:30 | XMS_ITS ---
Author Organization [facility] Address [address] [place] [address] Care Team Providers Care Industrial Maintenance Repairer Name Role Phone Po Ed HO Primary Care Provider Sadiq Ramos Unavailable [phone] REASON FOR VISIT screening,hx polyps Problems Problem Type SNOMED Code ICD Code Onset Dates Problem Status W/U Status Risk Notes Problem Diverticulosis o f large intestine without perforation or abscess without bleeding (K57.30) Active confirmed Encounters Encounter Location Date Provider Diagnosis [facility] [place] Out[place] [address] [place], [place] [phone] 02/01/2024 Sadiq Sevilla Encounter for scre ening [...] Notes * ADELINA ROBERTSONDOB:1960 (64 yo M)Acc No.[id number]:02/01/2024 COLON WITH MAC Patient: ADELINA YAO Provider: Shu Sevilla MD :1960 A ge:63 Y S ex:Male Date:02/01/2024 Address:[address] [place], [place] [phone] Pcp:Ed Yuen MD Subjective: * Chief Complaints: [...] Pending * Provider: Shu Sevilla MD Date: 02/01/2024 Generated for Elva blanca/Charles/Haileyitting on: 02/13/2025 09:34 AM EDT
[2025-02-13 09:09] VITALS: BP 146/82; PULSE 81; RESP 16; TEMP 36.1; O2SAT 99; BMI 25.6
--- NOTE | 2025-02-13 09:09 | MHC.PC.OV ---
Vital Signs 02/13/25 09:09 Height 5 ft 8 in Weight 168 lb 4 oz BMI 25.6 BP 146/82 H Blood Pressure Location Lt brachial Position Sitting Respiration 16 Pulse 81 Pulse Source Pulse Oximeter Temp 97.0 F Temp Source Temporal Artery Scan Pulse Oximetry (%) 99 Oxygen Delivery Method Room Air Intake Visit Reasons: PE COPD Allergies No Known Allergies (No Known Allergies*) Allergy (Verified 02/13/25 09:12) Medication List - Last Reconciled 02/13/25 by Ed Yuen MD albuterol sulfate 90 mcg/actuation 2 puffs inhalation Q6H PRN budesonide-formoterol 160-4.5 mcg/actuation (Symbicort) 2 puffs inhalation Q12H diclofenac sodium 1% (Voltaren Arthritis Pain) 4 grams topical QID lisinopril 20 mg PO DAILY 90 days omeprazole 20 mg PO DAILY rivaroxaban (Xarelto) 10 mg PO DAILY simvastatin 10 mg PO BEDTIME timolol 0.25% 1 drp ophthalmic (eye) DAILY [Vitamin D (with calcium) 1 tab PO DAILY] Tobacco use date assessed: 02/13/25 Fall risk assessment: No Falls in past year Last assessed Fall Risk: 02/13/25 Dental Screening Dental Screen Date: 02/13/25 Did you have a dental visit in the last 12 months?: No Did you have a dental problem in the last 6 months where you did not have access to dental care?: No Was dental information given to patient?: Patient declined [facility] Medical History Nicotine dependence, cigarettes, uncomplicated Tubular adenoma of colon (~2017) History of deep vein thrombosis (DVT) of lower extremity (~07/2017) Peripheral vascular disease Hypertension Erosive esophagitis Hypercholesterolemia Vitamin D deficiency 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 Lupus anticoagulant positive History of pulmonary embolism (~07/2017) Surgical History History of esophagogastroduodenoscopy (EGD) History of colonoscopy S/P insertion of IVC (inferior vena caval) filter History of angioplasty of vein Family History (Updated 02/13/25 @ 09:35 by Ed Yuen MD) Father Automobile accident Mother Breast cancer Sister Cancer Social History (Updated 02/13/25 @ 09:36 by Ed Yuen MD) Housing: Apartment Alcohol intake: current Alcohol intake frequency: a few times a week Comment: 2 days weekend 2 drinks Patient Tobacco Use Status: Current everyday Tobacco user Tobacco use type: Cigarette Cigarettes Per Day: 15 Years Smoked: 50 still smoking e-Cigarette/Vaping Use: Never Used Second Hand Smoke Exposure: Yes service: No Current occupational status: employed Cognitive needs: No Hearing needs: No Vision needs: Yes Questionnaire PHQ-9 Over the last 2 weeks, how often have you been bothered by any of the following problems? 1. Little interest or pleasure in doing things: not at all 2. Feeling down, depressed, or hopeless: not at all 3. Trouble falling or staying asleep, or sleeping too much: not at all 4. Feeling tired or having little energy: not at all 5. Poor appetite or overeating: not at all 6. Feeling bad about yourself - or that you are a failure or have let yourself or your family down: not at all 7. Trouble concentrating on things, such as reading the newspaper or watching television: not at all 8. Moving or speaking so slowly that other people could have noticed. Or the opposite - being so fidgety or restless that you have been moving around a lot more than usual: not at all 9. Thoughts that you would be better off or of hurting yourself in some way: not at all Total score: 0 Depression Screening Interpretation: Negative Depression Screening Done: Yes Source: Developed by Drs. Sadiq Simmons, Jeanette Park, Shawn Webb and colleagues, with an educational julissa from [employer]. Thrive Questionnaire Date Thrive assessed: 08/16/24 I am a: Patient What is your living situation today?: I have a steady place to live Within the past 12 months, did the food you bought not last and you didn't have the money to get more?: Never true Within the past 12 months, did you worry whether your food would run out before you got money to buy more?: Never true Do you have trouble paying for medicines?: No Do you have trouble getting transportation to medical appointments?: No Do you have trouble paying your heating and electricity bill?: No Do you have trouble taking care of your child, family member or friend?: No Do you have trouble with day-to-day activities such as bathing, preparing meals, shopping, managing finances, etc.?: No Are you currently unemployed and looking for a job?: No Are you interested in more education?: No Currently or been in a relationship where the following occur: No concerns reported THRIVE Score: 0 AUDIT C Alcohol Use Questionnaire (AUDIT-C) 1. How often do you have a drink containing alcohol?: 2-3 times a week 2. How many drinks containing alcohol do you have on a typical day when you are drinking?: 3 or 4 3. How often do you have six or more drinks on one occasion?: Less than monthly Total Score: 5 JARVIS-7 AMB Questionnaire JARVIS-7 Date JARVIS - 7 assessed: 08/16/24 Feeling nervous, anxious, or on edge: 0 = Not at all Not being able to stop or control worryin = Not at all Worrying too much about different things: 0 = Not at all Trouble relaxin = Not at all Being so restless that it is hard to sit still: 0 = Not at all Becoming easily annoyed or irritable: 0 = Not at all Feeling afraid as if something awful might happen: 0 = Not at all Total JARVIS-7 score (0-4 normal; 5-9 mild; 10-14 moderate; 15-21 severe): 0 Source: Developed by Drs. Sadiq Simmons, Jeanette Park, Shawn Webb and colleagues, with an educational julissa from [employer]. Review of Systems Const Denies poor appetite and Denies weakness Eyes Denies no additional complaints ENT Reports Normal hearing present, Denies dizziness, Denies nasal congestion, Denies tinnitus and Denies sore throat Card Denies chest pain, Denies syncope, Denies rapid heart rate and Denies dyspnea Resp Denies cough and Denies dyspnea GI Denies change in stool character, Reports constipation, Denies diarrhea, Denies nausea and Denies vomiting Denies dysuria and Denies urinary frequency Neuro Reports Normal hearing present, Denies confusion, Denies dizziness, Denies syncope and Denies weakness Psych Denies confusion Physical exam (Primary Care) Vital Signs: Last Vital Signs Temp 97.0 F 02/13/25 09:09 Pulse 81 02/13/25 09:09 Resp 16 02/13/25 09:09 BP 146/82 H 02/13/25 09:09 Pulse Ox 99 02/13/25 09:09 Oxygen Delivery Method Room Air 02/13/25 09:09 BMI result Body Mass Index 25.6 Tobacco/Smoking Status: Tobacco use Status Tobacco use date assessed 02/13/25 02/13/25 09:13 Patient Tobacco Use Status Current everyday Tobacco 02/13/25 09:36 Tobacco use type Cigarette 02/13/25 09:36 e-Cigarette/Vaping Use Never Used 02/13/25 09:36 PHQ-9: PHQ-9 Score PHQ-9: Total score 0 02/13/25 09:28 Depression Screening Interpretation: Negative Thrive Assessment: Date of Thrive Assessment Date Thrive assessed 08/16/24 02/13/25 09:13 Currently or been in a relationship where the following occur: No concerns reported Const General: No confusion Orientation/consciousness: No confusion HENMT Head: Yes normocephalic Ears: external ears normal and TM's normal bilaterally Face and sinus: Yes normal facial exam Mouth: moist mucous membranes Throat: Yes tonsils normal Eyes Conjunctivae: conjunctivae normal Pupils: Equal, round and reactive pupils present and Pupil accommodation reflex normal Direct Ophthalmoscopy: normal light reflex Neck Neck: No lymphadenopathy Thyroid: Thyroid normal Chest Chest palpation & inspection: normal inspection of the chest Resp Effort & Inspection: normal respiratory effort and no audible wheezes Auscultation: clear to auscultation bilaterally, no crackles, no wheezes and lung sounds not diminished Cardio Rate: regular rate Rhythm: regular rhythm Peripheral pulses: radial pulses present and dorsalis pedis present GI Other: guaiac negative , prostate mild enlarged Palpation (GI): no masses Auscultation: normal bowel sounds and normoactive bowel sounds Male General Exam: Yes normal external exam Skin General skin exam: no rashes or lesions noted Rashes: no rashes Neuro General: No confusion Cranial nerves: Yes Equal, round and reactive pupils present and Yes Normal hearing present Cognition (Neuro): normal cognition Gait exam (Neuro): Normal gait present Motor exam (neuro): 5/5 motor strength present throughout Deep tendon reflexes (DTR's): Right brachioradialis reflex intensity grade: 2+, Left brachioradialis reflex intensity grade: 2+, Right patellar reflex intensity grade: 2+ and Left patellar reflex intensity grade: 2+ Extrem General: No edema Coding Level of Care Code Est Pt Prev Care 40-64y(12125) Diagnoses Annual physical exam Z00.00 Nicotine dependence, cigarettes, uncomplicated F17.210 COPD (chronic obstructive pulmonary disease) J44.9 Impaired glucose tolerance R73.02 Essential hypertension I10 Hypertension type: essential hypertension Hypercholesterolemia E78.00 Lupus anticoagulant positive R76.0 Elevated TSH R79.89 Chest pain R07.9 Assessment & Plan Assessment & Plan (1) Annual physical exam: Code(s): Z00.00 - Encounter for general adult medical examination without abnormal findings Category: Medical Plan: Patient is advised to eat healthy, keep well hydrated, keep active and have adequate sleep. (2) Nicotine dependence, cigarettes, uncomplicated: Comment: (current smoker - onset 18yo, 1/2-3/4 ppd x 45yrs, 25+PYH) CT scan 06/2024 Code(s): F17.210 - Nicotine dependence, cigarettes, uncomplicated Category: Medical Plan: Patient is in the lung cancer screening program. Patient is advised strongly to stop smoking (3) COPD (chronic obstructive pulmonary disease): Comment: 2010 PFT Code(s): J44.9 - Chronic obstructive pulmonary disease, unspecified Category: Medical Plan: Stop smoking! Patient on albuterol inhaler as well as Symbicort (4) Impaired glucose tolerance: Code(s): R73.02 - Impaired glucose tolerance (oral) Category: Medical Plan: Decrease the amount of carbohydrate intake, pasta, bread, rice and potatoes are all sugar and that is aside from all the sweet stuff, remember that fruits are good but they are Sweet also. (5) Hypertension: Code(s): I10 - Essential (primary) hypertension Category: Medical Qualifiers: Hypertension type: essential hypertension Qualified Code(s): I10 - Essential (primary) hypertension Plan: Continue with blood pressure medication. Decrease salt intake and exercise on lisinopril 10 mg once a day (6) Hypercholesterolemia: Code(s): E78.00 - Pure hypercholesterolemia, unspecified Category: Medical Plan: Avoid fried foods, chicken skin, eggs, butter margarine, pastries and meat. Be it pork or beef they have a lot of cholesterol LDL goal of less than 130 and triglyceride of less than 150. On simvastatin 10 mg at bedtime (7) Lupus anticoagulant positive: Code(s): R76.0 - Raised antibody titer Category: Medical Plan: Continue with anticoagulation Xarelto 10 mg once a day (8) Elevated TSH: Code(s): R79.89 - Other specified abnormal findings of blood chemistry Category: Medical Plan: Mild elevation will need follow-up blood test (9) Chest pain: Code(s): R07.9 - Chest pain, unspecified Category: Medical Plan History of Present Illness The patient is a 64-year-old male presenting with an annual physical examination and management of chronic conditions. He has a history of systemic lupus erythematosus with positive anticoagulation, managed with Xarelto. The patient also has chronic obstructive pulmonary disease, for which he uses an albuterol inhaler and Symbicort. Hypertension is another chronic condition, currently managed with lisinopril, which is being adjusted from 10 mg to 20 mg due to persistently high readings. The patient also has impaired glucose tolerance with a hemoglobin A1c of 5.8, indicating prediabetes. Hypercholesterolemia is managed with simvastatin, with current LDL levels at 109 mg/dL. The patient has a history of tubular adenoma of the colon, with the last colonoscopy performed in January 2024. The patient is part of a lung cancer screening program and has been advised to stop smoking. He reports smoking three-fourths of a pack per day and has been counseled on cessation. Recent blood work shows normal blood count and electrolytes, with a mildly elevated TSH that requires follow-up. Health Maintenance - Lung cancer screening program participation - Smoking cessation counseling - Blood pressure management with lisinopril adjustment - Monitoring of thyroid function due to elevated TSH - Colonoscopy performed in January 2024 for tubular adenoma follow-up Social History - Employment: Works long hours, plans to retire at 65 - Smoking: Smokes three-fourths of a pack per day, advised to quit - Alcohol: Consumes alcohol twice a week, two drinks per occasion Review of Systems - General: Denies fever, chills, or weight loss - Cardiovascular: Reports occasional chest pain, denies syncope or palpitations - Respiratory: Reports dyspnea on exertion, denies cough or wheezing - Gastrointestinal: Denies nausea, vomiting, or abdominal pain - Neurological: Denies dizziness or headaches Physical Exam General: Cooperative, healthy appearing, comfortable, no acute distress and well developed Orientation: Patient oriented x3 Limitations: No limitations Head: Normal to inspection Ears: Hearing grossly normal bilaterally Nose: Normal external nose present Face and sinus: Normal facial exam Eyes: Appearance normal, both eyes and all related structures Neck: Normal visual inspection and Yes full ROM Respiratory: Normal respiratory effort and able to speak in complete sentences. Clear to auscultation bilaterally Cardiovascular: Regular rate and rhythm. Normal S1 and S2 GI: Normal to inspection. Soft to palpation and nontender Skin: No rashes or lesions noted Neuro: Patient oriented x3 Extremities: Normal to inspection Results - Labs: Normal blood count, electrolytes, and renal function - Labs: Hemoglobin A1c at 5.8, indicating prediabetes - Labs: LDL cholesterol at 109 mg/dL - Labs: TSH mildly elevated at 6.09, follow-up required Plan The patient will continue anticoagulation therapy with Xarelto for systemic lupus erythematosus with positive anticoagulation. For COPD management, the patient is advised to continue using the albuterol inhaler and Symbicort as needed, with emphasis on smoking cessation to improve respiratory health. Hypertension management includes increasing lisinopril from 10 mg to 20 mg daily to achieve better blood pressure control. The patient is advised to monitor blood pressure regularly and report any adverse effects from the medication adjustment. For impaired glucose tolerance, the patient is encouraged to maintain a healthy diet and exercise routine to prevent progression to diabetes. Hypercholesterolemia management will continue with simvastatin, aiming to maintain LDL levels below 130 mg/dL. The patient is part of a lung cancer screening program and will continue regular screenings. Follow-up for the mildly elevated TSH is planned, with a repeat thyroid function test in a few months to monitor any changes. Patient was informed and verbally consented to the use of an ambient scribe for clinic note documentation during this visit. Discussion Notes During the visit, I discussed the importance of managing chronic conditions such as hypertension and hypercholesterolemia with the patient. We reviewed the need for medication adjustments, specifically increasing lisinopril to better control blood pressure. I emphasized the significance of smoking cessation for improving COPD and overall health, and the patient was advised to continue participating in the lung cancer screening program. We also discussed the mildly elevated TSH and the plan for follow-up testing to monitor thyroid function. The patient was informed about the importance of maintaining a healthy lifestyle to manage impaired glucose tolerance and prevent progression to diabetes. Patient Instructions - Continue taking Xarelto as prescribed. - Use albuterol inhaler and Symbicort as needed for COPD. - Increase lisinopril to 20 mg daily and monitor blood pressure regularly. - Follow a healthy diet and exercise regularly to manage glucose levels. - Continue simvastatin for cholesterol management. - Participate in lung cancer screening and follow up on thyroid testing. - Quit smoking to improve overall health. Orders: Orders CA stress test Today R07.9 - Chest pain, unspecified Medications: Changed From lisinopril 10 mg PO DAILY 90 days 90 tabs 2RF I10 - Essential (primary) hypertension To lisinopril 20 mg PO DAILY 90 tabs 2RF 90 days I10 - Essential (primary) hypertension Refilled albuterol sulfate 90 mcg/actuation 2 puffs inhalation Q6H PRN 8.5 grams 0RF shortness of breath or wheezing J44.9 - Chronic obstructive pulmonary disease, unspecified
== END 2025-02-13 09:55 | disposition home or self-care (01) ==
LOC: HO.HMCH 09:06
PROVIDERS: PCP Internal Medicine; Visit Provider Internal Medicine
DX: Z00.00 Encounter for general adult medical examination without abnormal findings (principal); F17.210 Nicotine dependence, cigarettes, uncomplicated; J44.9 Chronic obstructive pulmonary disease, unspecified; R73.02 Impaired glucose tolerance (oral); I10 Essential (primary) hypertension; E78.00 Pure hypercholesterolemia, unspecified; R76.0 Raised antibody titer; R79.89 Other specified abnormal findings of blood chemistry; R07.9 Chest pain, unspecified

== ENCOUNTER → 2025-04-12 07:53 | Outpatient (REF) | payer BC, SELFPAY ==
--- NOTE | 2025-04-12 08:00 | CA_ITS ---
Acquisition Time: 2025-04-12 07:57:13 Total Exercise Time: 00:09:00 Test Indications: CP Medications: SEE H&P Protocol: LAUREN Max HR: 144 BPM 92% of Pred: 156 BPM Max BP: 140/80 mmHG Max Work Load: 10.1 METS Exercise stress test with exercise 9 mins of Lauren Protocol, achieving 92% MPHR, with reports of 3/10 left sided chest tightness and SOB, without any arrythmias, with normotensive response to exercise. With ST changes inferiorly and in leads V4-V6, suggestive of ischemia. In recovery, breathing improved and chest tightness resolved. ST segment improved. Recommend nuclear stress test for further evaluation. Test reviewed with Dr. Urbano. Referred By: Ed Yuen Electronically Signed By: Jarred Macias
== END ==
LOC: HO.CARD 07:53
PROVIDERS: PCP Internal Medicine; Visit Provider Internal Medicine
DX: R07.9 Chest pain, unspecified (principal)
CPT/HCPCS: 93017

== ENCOUNTER → 2025-04-12 08:00 | Outpatient (BNV) | payer BC, SELFPAY | PROVIDERS: PCP Internal Medicine | DX: R06.02 Shortness of breath (principal); R07.2 Precordial pain | CPT/HCPCS: 93016; 93018 ==

== ENCOUNTER 2025-06-04 07:31 | Outpatient (REF) | payer BC, SELFPAY ==
--- OUTSIDE RECORDS SUMMARY | 2024-02-01 05:30 | XMS_ITS ---
Author Organization [facility] Address [address] [place] [address] Care Team Providers Care Manufacturing Intern Name Role Phone Po Ed HO Primary Care Provider Sadiq Ramos Unavailable [phone] REASON FOR VISIT screening,hx polyps Problems Problem Type SNOMED Code ICD Code Onset Dates Problem Status W/U Status Risk Notes Problem Diverticular disease of colon (361539114) Diverticulosis of large intestine without perforation or abscess without bleeding (K57.30) Active confirmed Encounters Encounter Location Date Provider [place] [facility] [place] [address] [place], [place] [phone] 02/01/2024 Sadiq Sevilla Encounter for scre ening [...] Notes * ADELINA ROBERTSONDOB:1960 (64 yo M)Acc No.[id number]:02/01/2024 COLON WITH MAC Patient: Shu ZEKELIGIARAJESH ADELINA Provider: Shu Sevilla MD :1960 A ge:63 Y S ex:Male Date:02/01/2024 Address:[address] [place], [place] [phone] Pcp:Ed Yuen MD Subjective: * Chief Complaints: [...] 02/01/2024 Generated for Elva blanca/Charles/Gordonsmitting on: 1 08/04/2024 07:33 AM EST
--- OUTSIDE RECORDS SUMMARY | 2025-06-04 07:33 | XMS_ITS | Patient Health Record ---
Author Organization [facility] Address [address] [place] [address] Care Team Providers Care Wet Inspector Optical Glass Name Role Phone Ed Yuen MD Primary Care Provider Sadiq Ramos Unavailable [phone] Allergies No Known Allergies Reason For Referral No Information Medications Medication SIG (Take, Route, Fr equency, Duration) Notes Start Date End Date Status Omeprazole 20 MG TAKE 1 CAPSULE BY MO [facility] EVERY DAY IN THE MORNING; Duration: 90 Active Simvastatin 10 MG TAKE 1 TABLET BY DEYSI EVERYDAY AT BEDTIME Oral; Duration: 90 Active Xarelto 10 MG Oral; Duration: 30 Active Timolol Maleate 0.5 % 1 drop into affect ed eye Ophthalmic Once a day Active Vitamin D2 Active Immunizations Vaccine Route Administration Date Status Comme nts Influenza Unknown 03/25/2018 Administered Social History Tobacco Use: Social History Observation Description Date Details (start date - stop date) Current Smoker NA - NA Tobacco Use/Smoking Question Answer Notes Patient is [...] Weekly (3 points) Points 7 Interpretation Positive Section Notes: Smoker 1/2 ppd; social drink er on the weekends Nonsmoker since 06/2018; soc ial drinker on the weekends Nonsmoker since 06/2018; soc ial drinker on the weekends Problems Problem Type SNOMED Code ICD Code Onset Dates Problem Status W/U Status Risk Notes Problem Screening for malignant neoplasm of colon (814081171) Encounter for screening for malignant neoplasm of colon (Z12.11) Active confirmed Problem History of adenomatous polyp of colon (350979184) History of adenomatous polyp of colon (Z86.010) Active confirmed Problem Diverticular disease of colon (529087600) Diverticulosis of large intestine without perforation or abscess without bleeding (K57.30) Active confirmed Problem Hiatal hernia (06261610) Hiatal hernia (K44.9) Active confirmed Problem Erosive esophagitis (49907010) Erosive esophagitis (K22.10) Active confirmed Problem Abnormal CT scan , esophagus (R93.3) Active confirmed Plan Of Treatment Future Test Test Name Order Date UPPER GI ENDOSCOPY 09/16/2017 COLONOSCOPY 09/16/2017 COLONOSCOPY 08/11/2023 Insurance Providers Payer Name Payer Address Payer Phone Subscriber Number Group Number Insured Name Patient Relationship to Insured Coverage Start Date Coverage End Date [facility] [address] [place], [place] [id number] [phone] [id number] MAXINE Herrera ADELINA Self - patient is the insured Medical (General) History Medical History History ICD Code Denies ND,DM,CVA,Lung disease,renal dise ase DVT in RLE 07/2017 [...]
[2025-06-04 09:47] LABS: Free T4 (Free Thyroxine) 1.03 ng/dL (0.71-1.85); Thyroid Stimulating Hormone 4.54 uIU/mL (0.32-4.0)
== END 2025-06-04 07:32 | disposition home or self-care (01) ==
LOC: HO.LAB 07:31
PROVIDERS: PCP Internal Medicine; Visit Provider Internal Medicine
DX: R79.89 Other specified abnormal findings of blood chemistry (principal); Z13.29 Encounter for screening for other suspected endocrine disorder
CPT/HCPCS: 36415; 84439; 84443

== ENCOUNTER → 2025-06-05 07:47 | Outpatient (REF) | payer BC, SELFPAY ==
--- OUTSIDE RECORDS SUMMARY | 2024-02-01 05:30 | XMS_ITS ---
Author Organization [facility] Address [address] [place] [address] Care Team Providers Care Small Parts Assembler Name Role Phone Po Ed HO Primary Care Provider Sadiq Ramos Unavailable [phone] REASON FOR VISIT screening,hx polyps Problems Problem Type SNOMED Code ICD Code Onset Dates Problem Status W/U Status Risk Notes Problem Diverticular disease of colon (692327350) Diverticulosis of large intestine without perforation or abscess without bleeding (K57.30) Active confirmed Encounters Encounter Location Date Provider [place] [facility] [place] [address] [place], [place] [phone] 02/01/2024 Sadiq Sevilla Encounter for scre ening [...] Notes * ADELINA ROBERTSONDOB:1960 (64 yo M)Acc No.[id number]:02/01/2024 COLON WITH MAC Patient: Shu ZEKELIGIARAJESH ADELINA Provider: Shu Sevilla MD :1960 A ge:63 Y S ex:Male Date:02/01/2024 Address:[address] [place], [place] [id number] Pcp:Ed Yuen MD Subjective: * Chief Complaints: [...] MD Date: 0 02/01/2024 Generated for Elva blanca/Charles/Gordonsmitting on: 1 08/05/2024 07:51 AM EST
--- NOTE | ~2025-06-05 | NM_ITS ---
EXERCISE MYOCARDIAL PERFUSION STUDY INDICATION: Chest pain to evaluate for myocardial ischemia TECHNIQUE: The patient was brought in for an exercise perfusion study on 06/05/2025. Patient performed exercise as per Tesfaye protocol and was injected 25 mCi of sestamibi once target heart rate was achieved. Images were obtained using the SPECT gamma camera interlaced with the gating device. Images were obtained in supine position. Resting perfusion study was performed on 06/06/2025. Patient was administered 25 mCi of sestamibi intravenously at rest. Images were then obtained in supine position. Images were processed with the software and compared side to side in short axis, horizontal long axis and vertical long axis views. Images obtained without without CT attenuation. Total DLP 71 mGy-cm. FINDINGS: Raw images were reviewed The stress perfusion study showed nonattenuated images show minimal thinning of the inferior wall of the LV myocardium. Attenuated corrected images show normal uptake of radiotracer in all segments of the LV myocardium. The gated study shows normal LV systolic function with calculated LVEF of 57%. LV cavity is mildly dilated in size. The gated study shows normal systolic wall thickening and contraction of segments. Resting study shows no change in perfusion pattern compared to stress perfusion study. Gating at rest reveals normal systolic wall motion with ejection fraction at 59%. The findings are consistent with normal myocardial perfusion. NM/NM cardiolite stress test IMPRESSION: 1. Myocardial perfusion imaging study shows normal myocardial perfusion. 2. Gated LVEF is 57%. 3. Transient ischemic dilatation not present. EKG revealed negative for ischemia. Electronically signed by: Geovanni Ron MD 06/06/2025 03:41 PM [facility] [place]
--- OUTSIDE RECORDS SUMMARY | 2025-06-05 07:51 | XMS_ITS | Patient Health Record ---
Author Organization [facility] Address [address] [place] [address] Care Team Providers Care Firer Automatic Stoker Name Role Phone Ed Yuen MD Primary Care Provider Sadiq Ramos Unavailable [phone] Allergies No Known Allergies Reason For Referral No Information Medications Medication SIG (Take, Route, Fr equency, Duration) Notes Start Date End Date Status Omeprazole 20 MG TAKE 1 CAPSULE BY MO [facility] EVERY DAY IN THE MORNING; Duration: [...] Problem Screening for malignant neoplasm of colon (677256932) Encounter for screening for malignant neoplasm of colon (Z12.11) Active confirmed Problem History of adenomatous polyp of colon (707732075) History of adenomatous polyp of colon (Z86.010) Active confirmed Problem Diverticular disease of colon (646090581) Diverticulosis of large intestine without perforation or abscess without bleeding (K57.30) Active confirmed Problem Hiatal hernia (44696394) Hiatal hernia (K44.9) Active confirmed Problem Erosive esophagitis (92200010) Erosive esophagitis (K22.10) Active confirmed Problem Abnormal CT scan , esophagus (R93.3) Active confirmed Plan Of Treatment Future Test Test Name Order Date UPPER GI ENDOSCOPY 09/16/2017 COLONOSCOPY 09/16/2017 COLONOSCOPY 08/11/2023 Insurance Providers Payer Name Payer Address Payer Phone Subscriber Number Group Number Insured Name Patient Relationship to Insured Coverage Start Date Coverage End Date [facility] [address] [place], [place] [id number] MAXINE Herrera ADELINA Self - patient is the insured Medical (General) History Medical History History ICD Code Denies OR,DM,CVA,Lung disease,renal dise ase DVT in RLE 07/2017 [...]
--- NOTE | 2025-06-05 09:22 | CA_ITS ---
Acquisition Time: 2025-06-05 07:59:22 Total Exercise Time: 00:08:59 Test Indications: CP Medications: SEE H&P Protocol: STAN Max HR: 141 BPM 90% of Pred: 156 BPM Max BP: 168/80 mmHG Max Work Load: 10.1 METS Exercise stress test with exercise 8 mins 59 secs of Stan Protocol, achieving 87% MPHR, with reports of 2/10 mid chest tightness towards the end of exercise, with SOB, with isolated PVCs, with normotenisve response to exercise. With borderline ST changes not meeting criteia for ischemia. In recovery, chest tightness resolved and breathing improved to baseline. Nuclear images pending. Test reviewed with Dr. Ron. Referred By: Ed Yuen Electronically Signed By: Jarred Macias
== END ==
LOC: HO.CARD 07:47
PROVIDERS: PCP Internal Medicine; Visit Provider Internal Medicine
DX: R07.9 Chest pain, unspecified (principal)
CPT/HCPCS: 78452; 93017; A9500

== ENCOUNTER → 2025-06-05 09:22 | Outpatient (BNV) | payer BC, SELFPAY | PROVIDERS: PCP Internal Medicine | DX: I49.3 Ventricular premature depolarization (principal); R06.02 Shortness of breath; R07.89 Other chest pain | CPT/HCPCS: 78452; 93016; 93018 ==

== ENCOUNTER 2025-06-06 10:37 | Outpatient (AMB) | payer BC, SELFPAY ==
--- OUTSIDE RECORDS SUMMARY | 2024-02-01 05:30 | XMS_ITS ---
Author Organization [facility] Address [address] [place] [address] Care Team Providers Care Quality Measurement Specialist Name Role Phone Po Ed HO Primary Care Provider Sadiq Ramos Unavailable [phone] REASON FOR VISIT screening,hx polyps Problems Problem Type SNOMED Code ICD Code Onset Dates Problem Status W/U Status Risk Notes Problem Diverticular disease of colon (620419952) Diverticulosis of large intestine without perforation or abscess without bleeding (K57.30) Active confirmed Encounters Encounter Location Date Provider Diagnosis [facility] Outpatient [address] [place], [place] [id number] 02/01/2024 Sadiq Sevilla Encounter for scre ening colonoscopy Z12.11 ; Colon polyps K63.5 ; Diverticulosis of large intestine without perforation or abscess without bleeding K57.30 and Other hemorrhoids K64.8 Assessments Encounter Date Diagnosis (ICD Code) Assessment Notes Treatment Notes Treatment Clinical Notes Section Notes 02/01/2024 Encounter for screening colonoscopy (ICD-10 - Z12.11) 02/01/2024 Colon polyps (ICD-10 - K63.5) 02/01/2024 Diverticulosis of large intestine without perforation or abscess without bleeding (ICD-10 - K57.30) 02/01/2024 Other hemorrhoids (ICD-10 - K64.8) Plan Of Treatment No Information Progress Notes * ADELINA ROBERTSONDOB:1960 (64 yo M)Acc No.[id number]:02/01/2024 COLON WITH MAC Patient: Shu ZEKELIGIARAJESH ADELINA Provider: Shu Sevilla MD :1960 A ge:63 Y S ex:Male Date:02/01/2024 Address:[address] [place], [place] [id number] Pcp:Ed Yuen MD Subjective: * Chief Complaints: * 1 . Screening,hx polyps. * Medical History: Objective: * Vitals: Assessment: * Assessment: 1. E ncounter for screening colonoscopy - Z12.11 (Primary) 2 . C olon polyps - K63.5 3 . D iverticulosis of large intestine without perforation or abscess without bleeding - K57.30 4 . O ther hemorrhoids - K64.8 Plan: * Treatment: * Procedure Codes: 4 5385 LESION REMOVAL COLONOSCOPY, Modifiers: PT * * The named appointment provid er may or may not be the originator of this progress note, and it is not deemed complete until electronically signed by the appointment provider. Sign off status: Pending * Provider: Shu Sevilla MD Date: 0 02/01/2024 Generated for Elva blanca/Charles/Haileyitting on: 1 08/06/2024 01:02 PM EST
[2025-06-06 10:39] VITALS: BP 116/72; PULSE 87; O2SAT 98; BMI 26.1
--- NOTE | 2025-06-06 10:39 | A.OFFPC_ITS ---
Vital Signs 06/06/25 10:39 Height 5 ft 8 in Weight 172 lb BMI 26.1 BP 116/72 Blood Pressure Location Lt brachial Position Sitting Pulse 87 Pulse Source Pulse Oximeter Pulse Oximetry (%) 98 Oxygen Delivery Method Room Air Intake Visit Reasons: Hypertension Allergies No Known Allergies (No Known Allergies*) Allergy (Verified 06/06/25 10:39) Tobacco use date assessed: 02/13/25 Fall risk assessment: No Falls in past year Last assessed Fall Risk: 06/06/25 Dental Screening Dental Screen Date: 02/13/25 [facility] Medical History Nicotine dependence, cigarettes, uncomplicated Tubular adenoma of colon (~2017) History of deep vein thrombosis (DVT) of lower extremity (~07/2017) Peripheral vascular disease Hypertension Erosive esophagitis Hypercholesterolemia Vitamin D deficiency 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 Lupus anticoagulant positive History of pulmonary embolism (~07/2017) Surgical History History of esophagogastroduodenoscopy (EGD) History of colonoscopy S/P insertion of IVC (inferior vena caval) filter History of angioplasty of vein Family History (Updated 02/13/25 @ 09:35 by Ed Yuen MD) Father Automobile accident Mother Breast cancer Sister Cancer Social History (Updated 02/13/25 @ 09:36 by Ed Yuen MD) Housing: Apartment Alcohol intake: current Alcohol intake frequency: a few times a week Comment: 2 days weekend 2 drinks Patient Tobacco Use Status: Current everyday Tobacco user Tobacco use type: Cigarette Cigarettes Per Day: 15 Years Smoked: 50 still smoking e-Cigarette/Vaping Use: Never Used Second Hand Smoke Exposure: Yes service: No Current occupational status: employed Cognitive needs: No Hearing needs: No Vision needs: Yes Questionnaire PHQ-9 Over the last 2 weeks, how often have you been bothered by any of the following problems? 1. Little interest or pleasure in doing things: not at all 2. Feeling down, depressed, or hopeless: not at all 3. Trouble falling or staying asleep, or sleeping too much: not at all 4. Feeling tired or having little energy: not at all 5. Poor appetite or overeating: not at all 6. Feeling bad about yourself - or that you are a failure or have let yourself or your family down: not at all 7. Trouble concentrating on things, such as reading the newspaper or watching television: not at all 8. Moving or speaking so slowly that other people could have noticed. Or the opposite - being so fidgety or restless that you have been moving around a lot more than usual: not at all 9. Thoughts that you would be better off or of hurting yourself in some way: not at all Total score: 0 Depression Screening Interpretation: Negative Depression Screening Done: Yes Source: Developed by Drs. Sadiq Simmons, Shawn Franoc and colleagues, with an educational julissa from [employer]. Thrive Questionnaire Date Thrive assessed: 06/04/25 I am a: Patient What is your living situation today?: I have a steady place to live Within the past 12 months, did the food you bought not last and you didn't have the money to get more?: Never true Within the past 12 months, did you worry whether your food would run out before you got money to buy more?: Never true Do you have trouble paying for medicines?: No Do you have trouble getting transportation to medical appointments?: No Do you have trouble paying your heating and electricity bill?: No Do you have trouble taking care of your child, family member or friend?: No Do you have trouble with day-to-day activities such as bathing, preparing meals, shopping, managing finances, etc.?: No Are you currently unemployed and looking for a job?: No Are you interested in more education?: No Currently or been in a relationship where the following occur: No concerns reported THRIVE Score: 0 AUDIT C Alcohol Use Questionnaire (AUDIT-C) 1. How often do you have a drink containing alcohol?: 2-3 times a week 2. How many drinks containing alcohol do you have on a typical day when you are drinking?: 3 or 4 3. How often do you have six or more drinks on one occasion?: Less than monthly Total Score: 5 JARVIS-7 AMB Questionnaire JARVIS-7 Date JARVIS - 7 assessed: 08/16/24 Source: Developed by Drs. Sadiq Simmons, Shawn Franco and colleagues, with an educational julissa from [employer]. Physical exam (Primary Care) Vital Signs: Last Vital Signs Pulse 87 06/06/25 10:39 BP 116/72 06/06/25 10:39 Pulse Ox 98 06/06/25 10:39 Oxygen Delivery Method Room Air 06/06/25 10:39 BMI result Body Mass Index 26.1 Tobacco/Smoking Status: Tobacco use Status Tobacco use date assessed 02/13/25 06/06/25 10:40 Patient Tobacco Use Status Current everyday Tobacco 06/06/25 10:40 Tobacco use type Cigarette 06/06/25 10:40 e-Cigarette/Vaping Use Never Used 06/06/25 10:40 PHQ-9: PHQ-9 Score PHQ-9: Total score 0 06/06/25 11:00 Depression Screening Interpretation: Negative Thrive Assessment: Date of Thrive Assessment Date Thrive assessed 06/04/25 06/06/25 10:40 Currently or been in a relationship where the following occur: No concerns reported Const General: alert; No acute distress Eyes Conjunctivae: conjunctivae normal Resp Auscultation: clear to auscultation bilaterally Cardio Rate: regular rate Rhythm: regular rhythm GI Inspection: Yes normal to inspection Extrem General: Yes normal to inspection and No edema Office Procedures Flu Questionnaire Does the patient have a severe egg allergy?: No Does the patient have severe life threatening allergies?: No Does the patient have a fever or illness today?: No Has the patient ever had Guillain-Bismarck Syndrome?: No Has the patient ever had any past reaction to a flu shot?: No Immunizations Fluarix [id number] (PF) 45 mcg (15 mcg x 3)/0.5 mL IM syringe Performing Provider: Ed Yuen MD [facility] Administered by: Amanda Guerrero CMA on 06/06/25 11:00 Dose Route Admin Location Dispensed Lot Number Expiration Date [facility] Intercell Connector Placer 0.5 mL IM Left Deltoid 0.5 mL [id number] 01/21/26 [id number] [email or web address] VIS Given Date VIS Provided VIS Publication Date 06/06/25 Single Vaccine 24 Eligibility Eligibility Date Funding Source Not [facility] Eligible 06/06/25 Private Coding Level of Care Code Est Pt Level 4 (42751) Complex EM visit Add On G2211 Diagnoses Essential hypertension I10 Hypertension type: essential hypertension Hypercholesterolemia E78.00 Chest pain R07.9 Lupus anticoagulant positive R76.0 Impaired glucose tolerance R73.02 Elevated TSH R79.89 COPD (chronic obstructive pulmonary disease) J44.9 Nicotine dependence, cigarettes, uncomplicated F17.210 Assessment & Plan Assessment & Plan (1) Hypertension: Code(s): I10 - Essential (primary) hypertension Category: Medical Qualifiers: Hypertension type: essential hypertension Qualified Code(s): I10 - Essential (primary) hypertension Plan: Continue with blood pressure medication. Decrease salt intake and exercise patient on lisinopril 20 mg once a day (2) Hypercholesterolemia: Code(s): E78.00 - Pure hypercholesterolemia, unspecified Category: Medical Plan: Avoid fried foods, chicken skin, eggs, butter margarine, pastries and meat. Be it pork or beef they have a lot of cholesterol on simvastatin 10 mg at bedtime LDL goal of less than 130 and triglyceride of less than 150. (3) Chest pain: Code(s): R07.9 - Chest pain, unspecified Category: Medical Plan: Nuclear stress test done and the nuclear imaging is pending but the Lexiscan part shows ST-T changes not meeting criteria for ischemia (4) Lupus anticoagulant positive: Code(s): R76.0 - Raised antibody titer Category: Medical Plan: continue with anticoagulation on Xarelto 10 mg once a day (5) Impaired glucose tolerance: Code(s): R73.02 - Impaired glucose tolerance (oral) Category: Medical Plan: Decrease the amount of carbohydrate intake, pasta, bread, rice and potatoes are all sugar and that is aside from all the sweet stuff, remember that fruits are good but they are Sweet also. (6) Elevated TSH: Code(s): R79.89 - Other specified abnormal findings of blood chemistry Category: Medical Plan: Repeat testing shows improvement of the thyroid number will continue to monitor (7) COPD (chronic obstructive pulmonary disease): Comment: 2010 PFT Code(s): J44.9 - Chronic obstructive pulmonary disease, unspecified Category: Medical Plan: continue with albuterol and Symbicort (8) Nicotine dependence, cigarettes, uncomplicated: Comment: (current smoker - onset 18yo, 1/2-3/4 ppd x 45yrs, 25+PYH) CT scan 06/2024 Code(s): F17.210 - Nicotine dependence, cigarettes, uncomplicated Category: Medical Plan: patient is strongly advised to stop smoking will be scheduled for another CAT scan this June Plan History of Present Illness The patient is a 64-year-old male presenting for a follow-up visit. His medical history is significant for hypertension, hypercholesterolemia, positive lupus anticoagulant, impaired glucose tolerance, and COPD. He has a history of tubular adenoma of the colon, with his last colonoscopy performed in January 2024. He also has a history of smoking, and his last CAT scan was in June 2024. A recent stress test showed borderline ST changes but did not meet the criteria for ischemia, and nuclear imaging is pending. Blood tests from February 11 showed a normal blood count with no anemia. His LDL cholesterol in January was 109. His thyroid was retested and the levels are improving. Health Maintenance - The patient is strongly advised to stop smoking. - Last colonoscopy for history of tubular adenoma was in January 2024. - Last CAT scan for lung cancer screening was in June 2024, with another scheduled for this June. - LDL cholesterol goal is less than 130 mg/dL, and triglyceride goal is less than 150 mg/dL. Social History - Substance Use: The patient has a history of smoking and has been strongly advised to quit. Review of Systems Physical Exam Results - Labs (February 11): Normal blood count with no anemia. - Thyroid function tests are improving. - LDL cholesterol was 109 in January. - Tests and Diagnostics: Recent stress test (Lexiscan) showed borderline ST changes that did not meet criteria for ischemia. - Nuclear imaging results are pending. - A colonoscopy in January 2024 revealed a tubular adenoma. - A CAT scan was performed in June 2024. Plan Patient was informed and verbally consented to the use of an ambient scribe for clinic note documentation during this visit. 1. Hypertension The patient will continue lisinopril 20 mg once a day for blood pressure management. 2. Hypercholesterolemia The patient will continue simvastatin 10 mg at bedtime, with a goal of LDL cho lesterol less than 130 and triglycerides less than 150. 3. Abnormal Stress Test A recent nuclear stress test showed ST changes that did not meet the criteria for ischemia. The nuclear imaging portion of the test is still pending. 4. Lupus Anticoagulant Positive The patient will continue anticoagulation therapy with Xarelto 10 mg once a day. 5. Impaired Glucose Tolerance The patient's impaired glucose tolerance will continue to be monitored. 6. Thyroid Disorder, Unspecified Repeat testing has shown improvement in the thyroid numbers, and monitoring will continue. 7. Chronic Obstructive Pulmonary Disease The patient will continue treatment with albuterol and Symbicort. 8. Tobacco Use The patient was strongly advised to stop smoking. He will be scheduled for another CAT scan this June for lung cancer screening. Discussion Notes I reviewed the patient's recent stress test, which showed borderline ST changes but did not meet the criteria for ischemia. I informed him that we are awaiting the results of the nuclear imaging. We will continue his current medications, including lisinopril for hypertension, simvastatin for hypercholesterolemia, and Xarelto for anticoagulation. I noted that his repeat thyroid tests show improvement and we will continue to monitor them. He should continue his albuterol and Symbicort for COPD. I strongly advised him to stop smoking and informed him that we will schedule another CAT scan in June. Patient Instructions - Continue taking lisinopril 20 mg once a day for your blood pressure. - Continue taking simvastatin 10 mg at bedtime for your cholesterol. - Continue taking Xarelto 10 mg once a day to prevent blood clots. - Continue using your albuterol and Symbicort inhalers as prescribed for your COPD. - We will continue to monitor your thyroid levels, which are showing improvement. - It is very important that you stop smoking. We will schedule you for another CAT scan in June. - We are waiting for the final results of your recent nuclear heart scan. Orders: Orders Influenza [id number] Immunization Today Z23 - Encounter for immunization
--- OUTSIDE RECORDS SUMMARY | 2025-06-06 13:02 | XMS_ITS | Patient Health Record ---
Author Organization [facility] Address [address] [place] [address] Care Team Providers Care Chart Computer Name Role Phone Ed Yuen MD Primary Care Provider Sadiq Ramos Unavailable [phone] Allergies No Known Allergies Reason For Referral No Information Medications Medication SIG (Take, Route, Fr equency, Duration) Notes Start Date End Date Status Omeprazole 20 MG TAKE 1 CAPSULE BY MO [facility] EVERY DAY IN THE MORNING; [...] Problem Screening for malignant neoplasm of colon (243735151) Encounter for screening for malignant neoplasm of colon (Z12.11) Active confirmed Problem History of adenomatous polyp of colon (166232097) History of adenomatous polyp of colon (Z86.010) Active confirmed Problem Diverticular disease of colon (268404881) Diverticulosis of large intestine without perforation or abscess without bleeding (K57.30) Active confirmed Problem Hiatal hernia (91888881) Hiatal hernia (K44.9) Active confirmed Problem Erosive esophagitis (45889455) Erosive esophagitis (K22.10) Active confirmed Problem Abnormal CT scan , esophagus (R93.3) Active confirmed Plan Of Treatment Future Test Test Name Order Date UPPER GI ENDOSCOPY 09/16/2017 COLONOSCOPY 09/16/2017 COLONOSCOPY 08/11/2023 Insurance Providers Payer Name Payer Address Payer Phone Subscriber Number Group Number Insured Name Patient Relationship to Insured Coverage Start Date Coverage End Date [facility] [address] [place], [place] [id number] [phone] [id number] MAXINE Herrera ADELINA Self - patient is the insured Medical (General) History Medical History History ICD Code Denies [place],DM,CVA,Lung disease,renal dise ase DVT in RLE 07/2017 [...]
== END 2025-06-06 11:08 | disposition home or self-care (01) ==
LOC: HO.HMCH 10:37
PROVIDERS: PCP Internal Medicine; Visit Provider Internal Medicine
DX: I10 Essential (primary) hypertension (principal); J44.9 Chronic obstructive pulmonary disease, unspecified; E78.00 Pure hypercholesterolemia, unspecified; R07.9 Chest pain, unspecified; R76.0 Raised antibody titer; R73.02 Impaired glucose tolerance (oral); R79.89 Other specified abnormal findings of blood chemistry; F17.210 Nicotine dependence, cigarettes, uncomplicated; Z23 Encounter for immunization

== ENCOUNTER → 2025-06-06 10:37 | Outpatient (BNVA) | payer BC, SELFPAY | PROVIDERS: PCP Internal Medicine; Visit Provider Internal Medicine | DX: Z23 Encounter for immunization (principal); I10 Essential (primary) hypertension; R76.0 Raised antibody titer; E78.00 Pure hypercholesterolemia, unspecified; R07.9 Chest pain, unspecified; R73.02 Impaired glucose tolerance (oral); R79.89 Other specified abnormal findings of blood chemistry; J44.9 Chronic obstructive pulmonary disease, unspecified; F17.210 Nicotine dependence, cigarettes, uncomplicated | CPT/HCPCS: 90471; 90656; 96127 ==